=== PATIENT | female | born 1960 | race Caucasian/White ===

== ENCOUNTER → 2017-09-15 | Outpatient (CLI) | payer OTHER ==
[~2017-09-15] MED LIST: CPR500 PO; FSM70 PO
--- NOTE | 2017-09-18 07:58 | MAMMOGRAPHY REPORT ---
BILATERAL DIGITAL SCREENING MAMMOGRAM TOMOSYNTHESIS WITH CAD: 09/15/2017 CLINICAL HISTORY: Routine screening. Patient has no complaints. TECHNIQUE: Breast tomosynthesis in addition to standard 2D mammography was performed. Current study was also evaluated with a Computer Aided Detection (CAD) system. COMPARISON: Comparison is made to exams dated: 09/09/2016 mammogram, 09/04/2015 mammogram, 08/22/2014 mammogram, 08/16/2013 mammogram, 08/10/2012 mammogram, and 08/05/2011 mammogram - [facility]. BREAST COMPOSITION: The tissue of both breasts is extremely dense, which lowers the sensitivity of m ammography. FINDINGS: No suspicious masses, calcifications, or areas of architectural distortion are noted in ei ther breast. There has been no significant interval change compared to prior exams. IMPRESSION: ACR BI-RADS CATEGORY 1: NEGATIVE There is no mammographic evidence of malignancy. A 1 year screening mammogram is recommended. The pa tient will receive written notification of the results. Approximately 10% of breast cancers are not detected with mammography. A negative mammographic report should not delay biopsy if a clinically suggestive mass is present. Opal Coppola M.D. ah/:09/15/2017 16:35:41 Computer Operations Specialist: Marissa PAUL(Jose)(Gladys)(BD), [facility] letter sent: Normal 1/2 BI-RADS Code: ACR BI-RADS Category 1: Negative
== END | disposition home or self-care (01) ==
LOC: C.MAMM 13:15
PROVIDERS: ATTEND Family Medicine
DX: Z12.31 Encounter for screening mammogram for malignant neoplasm of breast (principal)

== ENCOUNTER 2024-11-13 15:43 | Inpatient (IN) ==
--- NOTE | 2024-11-13 15:48 | ED Triage Note ---
Date of Service November 13, 2024 Provider in Triage Author: Cinthya Forrester History of Present Illness This patient was briefly evaluated while in triage. An abbreviated physical exam was performed. This patient is a 64-year-old Female who presents to the ED for evaluation just seen at PCP for SOB and fever x 4-5 days oxygen levels were "low" and heart rate was "elevated" so was sent here for evaluation COVID test obtained, but unknown results Physical Exam GENERAL: NAD CARDIOVASCULAR: tachycardic in 120s RESPIRATORY: CTA ABDOMEN: BS x 4. Nontender to palpation. Initial orders for labs and / or imaging were placed and patient was placed in the waiting area until a bed is available. Please see further documentation for the full ED course.
[2024-11-13 16:09] LABS: Basophils # (auto) 0.06 K/uL (0.00-0.20); Basophils % (auto) 0.5 %; Eosinophils # (auto) 0.01 K/uL (0.00-0.50); Eosinophils % (auto) 0.1 %; Hematocrit (blood only) 41.1 % (37.0-47.0); Hemoglobin 13.7 g/dl (12.0-16.0); Immature Granulocytes # (auto) 0.06 K/uL (0.01-0.20); Immature Granulocytes % (auto) 0.5 %; Lymphocytes # (auto) 0.66 K/uL (1.20-3.40); Lymphocytes % (auto) 5.4 %; Mean Corpuscular Hemoglobin 29.8 pg (25.0-34.0); Mean Corpuscular Hgb Conc 33.3 g/dL (32.0-36.0); Mean Corpuscular Volume 89.5 fL (80.0-100.0); Mean Platelet Volume 10.2 fL (9.4-12.4); Monocytes # (auto) 0.97 K/uL (0.11-0.59); Neutrophils # (auto) 10.41 K/uL (1.40-6.50); Neutrophils % (auto) 85.5 %; Platelet Count 236 K/uL (130-400); RDW Coefficient of Variation 11.5 % (11.5-14.5); RDW Standard Deviation 37.4 fL (36.4-46.3); Red Blood Count 4.59 M/uL (4.20-5.40); White Blood Count 12.17 K/ul (4.8-10.8)
[2024-11-13 16:26] LABS: Albumin Level 4.4 gm/dl (3.4-5.0); BUN Creatinine Ratio 16.9 (10-20); Bilirubin,Total 0.6 mg/dl (0.2-1.0); Calcium 9.6 mg/dl (8.6-10.3); Globulin 4.5 gm/dl (2.5-4.0); Potassium 3.6 mmol/L (3.5-5.1); Total Protein 8.9 gm/dl (6.0-8.3)
[2024-11-13 16:33] LABS: Troponin I High Sensitivity 9.7 pg/ml (0-14)
[2024-11-13 16:43] LABS: D Dimer 1210 ug/L FEU (0-500)
[2024-11-13 16:51] LABS: Adenovirus PCR Not Detected (NotDetected); Bordetella parapertussis PCR Not Detected (NotDetected); Bordetella pertussis PCR Not Detected (NotDetected); Chlamydia pneumoniae PCR Not Detected (NotDetected); Coronavirus 229E PCR Not Detected (NotDetected); Coronavirus CoV-2 (COVID19)PCR Not Detected (NotDetected); Coronavirus HKU1 PCR Not Detected (NotDetected); Coronavirus NL63 PCR Not Detected (NotDetected); Coronavirus OC43PCR Not Detected (NotDetected); Human Metapneumovirus PCR Not Detected (NotDetected); Influenza A PCR Not Detected (NotDetected); Influenza B PCR Not Detected (NotDetected); Mycoplasma pneumoniae PCR Not Detected (NotDetected); Parainfluenza Virus 1 PCR Not Detected (NotDetected); Parainfluenza Virus 2 PCR Not Detected (NotDetected); Parainfluenza Virus 3 PCR Not Detected (NotDetected); Parainfluenza Virus 4 PCR Not Detected (NotDetected); Respiratory Syncytial VirusPCR Not Detected (NotDetected); Rhinovirus/Enterovirus PCR Not Detected (NotDetected)
[2024-11-13] MEDS: OPTIRAY 320 125ml IV ONE (16:58)
--- NOTE | 2024-11-13 17:15 | CT Scan Report ---
CT pulmonary angiogram with IV contrast History: Chest pain COMPARISON: 11/05/2023 TECHNIQUE: CT angiography of the chest was performed without IV contrast followed by IV contrast, including 3D post processing CTA image reconstruction. Dose reduction techniques were achieved by using automatic exposure control and/or adjustment of mA and/or kV according to patient size and/or use of iterative reconstruction technique. FINDINGS: Diagnostic quality: Adequate There is no evidence for pulmonary embolism. The heart is not enlarged. There is no pericardial effusion. Mildly prominent, likely reactive bilateral hilar lymph nodes. The central tracheobronchial tree is clear. Multifocal irregular nodular consolidative opacities are seen throughout the mid and lower lungs, as well as several scattered areas of tree-in-bud nodularity. There is no pleural effusion. Limited visualized upper abdomen. No destructive osseous changes are seen. IMPRESSION: No evidence for pulmonary embolism. Multifocal pneumonia. Electronically signed by Raul Adamson 11-13-2024 5:14 PM
--- NOTE | 2024-11-13 18:41 | XRay Report ---
Chest radiograph, one view History: Shortness of breath Comparison: Same-day CT Findings: Single AP view of the chest performed. Multifocal patchy opacities, most pronounced in the left lower lobe, and a few seen in the right mid lung in the periphery of the right lower lobe. No pneumothorax. The cardiomediastinal silhouette is within normal limits. Normal pulmonary vascularity. No evidence for lymphadenopathy. No visualized bony or soft tissue abnormality. Impression: Multifocal pneumonia Electronically signed by Raul Adamson 11-13-2024 6:41 PM
[2024-11-13 19:07] LABS: Appearance Urine Clear (Clear); Bacteria Urine Automated None Seen (None Seen); Bilirubin Urine Negative (Negative); Blood Urine Negative (Negative); Cast Urine Automated 0-2 /lpf (0-2); Color Urine Yellow; Epithelial Cell Urine Auto 0-2 /hpf (0-2); Glucose Urine UA Negative (Negative); Ketones Urine 4+ (Negative); Leukocyte Esterase Urine Negative (Negative); Nitrite Urine Negative (Negative); Protein Urine 2+ (Negative); Specific Gravity Urine > 1.045 (1.000-1.030); Urobilinogen Urine Negative (Negative); WBC Urine Automated 0-5 /hpf (0-5)
[2024-11-13] MEDS ORDERED: AZITHROMYCIN 500 MG VIAL IV STA (19:25)
[2024-11-13] MEDS: SODIUM CHLORIDE 0.9% 1,000 ML IV ONE (19:35)
[2024-11-13] MEDS: cefTRIAXone SODIUM 2,000 MG/50 ML BAG IV STA (19:35)
[2024-11-13] MEDS: DOXYCYCLINE HYCLATE 100 MG in DEXTROSE 5% MINI-B 100 ML IV STA (19:38)
[2024-11-13] MEDS: AZITHROMYCIN 500 MG in SODIUM CHLORIDE 0.9% 250 ML IV ONE (20:01)
--- NOTE | 2024-11-13 21:19 | Emergency Department Note ---
Impression & Plan Multifocal pneumonia, Shortness of breath, Tachycardia, Fever ED Provider Note NAME: KASEY BLEVINS AGE: 64 SEX: F : 1960 ARRIVES VIA: Walk-In INFORMANT: Patient, ED PROVIDER(S): René Hare MD CHIEF COMPLAINT: Fever, cough, weakness HPI: This is a 64-year-old male present for fever, cough and weakness. Patient notes that for the past 4 to 5 days she has felt increasingly weak and short of breath. She is had pneumonia multiple times over the past few years. She notes that she has tachycardia at her PCPs office and was sent here. She is intermittent hypoxic as well consistent with ambulation. She otherwise notes feeling like she has pneumonia currently. She has been coughing with pain in her chest with cough. Otherwise at rest she is asymptomatic. She is exceedingly weak and dehydrated After not eating and drinking ROS: See above HPI for pertinent positives & negatives. A total of 10 systems reviewed and were otherwise negative. PAST MEDICAL HISTORY: See Below PAST SURGICAL HISTORY: See Below FAMILY HISTORY: See Below SOCIAL HISTORY: See Below HOME MEDICATIONS: See Below ALLERGIES: See Below VITALS: See Below PHYSICAL EXAMINATION: General: resting comfortably in no acute distress Head: Normocephalic and atraumatic Eyes: Normal inspection, extraocular muscles intact Ear, nose, throat: Normal external exam, dry mucous membranes Neck: Normal range of motion Respiratory: Conversational dyspnea, rhonchi Cardiovascular: Tachycardic regular rate/rhythm, no murmur GI: soft, nontender, no guarding or rebound Extremities: nontender, moves all extremities Neuro: The patient awake and alert, appropriately conversive, no focal deficits, symmetric faces Skin: Warm, dry, and intact MEDICAL DECISION MAKING: This is a 64-year-old fampridine for cough, fever and weakness. Patient does not appear clinically septic but she does appear fairly ill. She is tachycardic into the 130s. She has dry mucous membranes will give 2 L resuscitation. Otherwise patient chest x-ray with multifocal pneumonia upon independent interpretation. She had a CT done at triage after positive D-dimer. This confirms multifocal pneumonia but no other process. -Otherwise blood work shows a leukocytosis of 12.17. Electrolytes generally stable, no signs of endorgan ischemia. Urinalysis reveals ketones consistent with dehydration. -Patient is currently having somewhat improved vital signs after fluids but still slightly tachycardic and having increased work of breathing -Will admit as patient does not appear clinically well and she has multifocal pneumonia. Will give ceftriaxone azithromycin -Patient admitted to hospital service Differential diagnosis: PE, pneumonia, ACS, sepsis Diagnostics interpreted by me: ECG: ECG independently interpreted by me with sinus tachycardia rate of 119, normal axis, normal UT, normal QRS, normal QTc, no ST segment elevations consistent with STEMI criteria Cardiac Monitoring: An order was placed for continuous cardiac monitoring. The monitor shows a rate of 112 with sinus rhythm. Past Med/Surg History Problem List (Updated 11/14/24 @ 09:28 by René Hare MD) Fever (Acute) Tachycardia (Acute) Shortness of breath (Acute) Multifocal pneumonia (Acute) Osteoporosis Social History Smoking Status: Never smoker Hx Alcohol Use: Yes Alcohol type: wine Hx Substance Use: No Preferred Language: Persian Special Events Coordinator Required: No Beliefs That Will Affect Care: None Current Living Situation: Alone Feels Safe at Home: Yes Assistive Devices: None Allergies Allergies Allergy/AdvReac Type Severity Reaction Status Date / Time No Known Allergies Allergy Verified 11/05/23 23:20 Home Meds Home Medications Medication Instructions Recorded Confirmed multivitamin 1 tab PO DAILY 11/13/24 11/13/24 Results & Data (ED) Vital Signs Vital Signs - 24 hr 11/13/24 15:44 11/13/24 18:39 11/13/24 18:39 Temperature 36.6 C Temperature Source Temporal Artery Scan Pulse Rate 127 H Pulse Rate [Apical] 126 H Respiratory Rate 19 32 H Respiratory Effort / Characteristics Non-Labored Spontaneous Respiratory Pattern Regular Blood Pressure 160/78 H Blood Pressure [Left Arm] 138/64 Blood Pressure Mean 105 Blood Pressure Mean [Left Arm] 88 Pulse Oximetry 94 94 96 Oxygen Delivery Method Room Air Room Air Room Air Sepsis Recent Fever Within 48 Hours No Sepsis New/Unexplained Change in Mental Status N/A Sepsis Action Taken by Nursing No Action Required 11/13/24 18:39 11/13/24 18:42 11/13/24 20:00 Temperature Temperature Source Pulse Rate 133 H Pulse Rate [Apical] 128 H Respiratory Rate 25 H Respiratory Effort / Characteristics Respiratory Pattern Blood Pressure Blood Pressure [Left Arm] 125/75 Blood Pressure Mean Blood Pressure Mean [Left Arm] 91 Pulse Oximetry 96 93 Oxygen Delivery Method Room Air Room Air Sepsis Recent Fever Within 48 Hours Sepsis New/Unexplained Change in Mental Status Sepsis Action Taken by Nursing Laboratory Data 11/14/24 06:12 11/14/24 06:12 Lab Results 11/13/24 11/13/24 11/13/24 Range/Units 15:52 15:54 18:41 WBC 12.17 H (4.8-10.8) K/ul RBC 4.59 (4.20-5.40) M/uL Hgb 13.7 (12.0-16.0) g/dl Hct 41.1 (37.0-47.0) % MCV 89.5 (80.0-100.0) fL MCH 29.8 (25.0-34.0) pg MCHC 33.3 (32.0-36.0) g/dL RDW Std Deviation 37.4 (36.4-46.3) fL RDW Coeff of Maxim 11.5 (11.5-14.5) % Plt Count 236 (130-400) K/uL MPV 10.2 (9.4-12.4) fL Immature Gran % (Auto) 0.5 % Neut % (Auto) 85.5 % Lymph % (Auto) 5.4 % [place] % (Auto) 8.0 % Eos % (Auto) 0.1 % Baso % (Auto) 0.5 % Neut # (Auto) 10.41 H (1.40-6.50) K/uL Lymph # (Auto) 0.66 L (1.20-3.40) K/uL [place] # (Auto) 0.97 H (0.11-0.59) K/uL Eos # (Auto) 0.01 (0.00-0.50) K/uL Baso # (Auto) 0.06 (0.00-0.20) K/uL Immature Gran # (Auto) 0.06 (0.01-0.20) K/uL D-Dimer 1210 H* (0-500) ug/L FEU Sodium 134 L (136-145) mmol/L Potassium 3.6 (3.5-5.1) mmol/L Chloride 96 L (98-107) mmol/L Carbon Dioxide 27 (21-32) mmol/L Anion Gap 11 (3-11) BUN 10 (6-23) mg/dl Creatinine 0.59 L (0.6-1.2) mg/dl Est Cr Clr Drug Dosing 76.0 ml/min eGFR 99.33 BUN/Creatinine Ratio 16.9 (10-20) Glucose 120 H (70-99(Fasting)) mg/dl Calcium 9.6 (8.6-10.3) mg/dl Total Bilirubin 0.6 (0.2-1.0) mg/dl AST 23 (13-39) U/L ALT 23 (7-52) U/L Alkaline Phosphatase 113 H (34-104) U/L Troponin I High Sens 9.7 (0-14) pg/ml Total Protein 8.9 H (6.0-8.3) gm/dl Albumin 4.4 (3.4-5.0) gm/dl Globulin 4.5 H (2.5-4.0) gm/dl Albumin/Globulin Ratio 1.0 (0.9-2) Urine Color Yellow Urine Appearance Clear (Clear) Urine pH 6.0 (4.5-7.5) Ur Specific [place] > 1.045 H (1.000-1.030) Urine Protein 2+ H (Negative) Urine Glucose (UA) Negative (Negative) Urine Ketones 4+ H (Negative) Urine Blood Negative (Negative) Urine Nitrite Negative (Negative) Urine Bilirubin Negative (Negative) Urine Urobilinogen Negative (Negative) Ur Leukocyte Esterase Negative (Negative) Urine WBC (Auto) 0-5 (0-5) /hpf Urine RBC (Auto) 3-5 H (0-2) /hpf U Hyaline Cast (Auto) 0-2 (0-2) /lpf U Epithel Cells (Auto) 0-2 (0-2) /hpf Urine Bacteria (Auto) None Seen (None Seen) Adenovirus (PCR) Not Detected (NotDetected) B. pertussis DNA (PCR) Not Detected (NotDetected) B.parapertussis DNA PCR Not Detected (NotDetected) C. pneumoniae DNA (PCR) Not Detected (NotDetected) Coronavirus OC43 (PCR) Not Detected (NotDetected) Coronavirus HKU1 (PCR) Not Detected (NotDetected) Coronavirus 229E (PCR) Not Detected (NotDetected) SARS-CoV-2 (PCR) Not Detected (NotDetected) Coronavirus NL63 (PCR) Not Detected (NotDetected) Human Metapneumovir PCR Not Detected (NotDetected) Influenza Type A (PCR) Not Detected (NotDetected) Influenza Type B (PCR) Not Detected (NotDetected) M. pneumoniae (PCR) Not Detected (NotDetected) Parainfluenza 1 (PCR) Not Detected (NotDetected) Parainfluenza 2 (PCR) Not Detected (NotDetected) Parainfluenza 3 (PCR) Not Detected (NotDetected) Parainfluenza 4 (PCR) Not Detected (NotDetected) RSV (PCR) Not Detected (NotDetected) Entero/Rhino (PCR) Not Detected (NotDetected) Administered Medications Enoxaparin Sodium (Enoxaparin Inj 40 Mg/0.4 Ml Syr) 40 mg SQ Q24H NICOLE Stop: 12/13/24 21:46 Last Admin: 11/13/24 22:20 Dose: 40 mg Documented By: MENA Guaifenesin/Dextromethorphan (Guaifenesin/Dextrom Syrup 100mg/10mg 5ml Udc) 5 ml PO Q6H PRN PRN Reason: Cough Stop: 12/13/24 21:46 Last Admin: 11/13/24 22:34 Dose: 5 ml Documented By: MENA Sodium Chloride (Nss) 1,000 mls @ 125 mls/hr IV .Q8H NICOLE Stop: 11/14/24 21:46 Last Admin: 11/14/24 06:17 Dose: 125 mls/hr Documented By: Infusion: 11/14/24 06:17 Dose: Infused Documented By: Admin: 11/13/24 22:20 Dose: 125 mls/hr Documented By: MENA Piperacillin Sod/Tazobactam Sod (Zosyn) 4.5 gm in 100 mls @ 25 mls/hr IV Q8H NICOLE; Protocol Stop: 11/18/24 22:59 Last Admin: 11/14/24 06:17 Dose: 25 mls/hr Documented By: Infusion: 11/14/24 02:54 Dose: Infused Documented By: Admin: 11/13/24 22:19 Dose: 25 mls/hr Documented By: MENA Discontinued Medications Sodium Chloride (Nss) 1,000 mls @ 999 mls/hr IV .Q1H1M ONE Stop: 11/13/24 20:21 Last Infusion: 11/13/24 20:38 Dose: Infused Documented By: Admin: 11/13/24 19:35 Dose: 999 mls/hr Documented By: JAY Ceftriaxone Sodium (Rocephin) 2,000 mg in 50 mls @ 100 mls/hr IV NOW STA Stop: 11/13/24 19:51 Last Infusion: 11/13/24 20:07 Dose: Infused Documented By: Admin: 11/13/24 19:35 Dose: 100 mls/hr Documented By: JAY Doxycycline Hyclate 100 mg/ (Dextrose) 100 mls @ 50 mls/hr IV NOW STA Stop: 11/13/24 21:21 Last Admin: 11/13/24 19:38 Dose: Not Given Documented By: JAY Azithromycin 500 mg/ Sodium (Chloride) 255 mls @ 127.5 mls/hr IV NOW ONE Stop: 11/13/24 21:29 Last Infusion: 11/13/24 22:09 Dose: Infused Documented By: Admin: 11/13/24 20:01 Dose: 127.5 mls/hr Documented By: JAY Promethazine HCl (Phenergan) 12.5 mg in 50.5 mls @ 202 mls/hr IV NOW STA Stop: 11/13/24 21:01 Last Infusion: 11/13/24 22:51 Dose: Infused Documented By: Admin: 11/13/24 22:34 Dose: 202 mls/hr Documented By: MENA Ioversol (Optiray 320 125ml) 119 ml IV ONCE ONE Stop: 11/13/24 16:59 Last Admin: 11/13/24 16:58 Dose: 119 ml Documented By: VINCE Imaging Data Radiologist's Impression: Chest X-Ray 11/13/24 15:48 Chest radiograph, one view History: Shortness of breath Comparison: Same-day CT Findings: Single AP view of the chest performed. Multifocal patchy opacities, most pronounced in the left lower lobe, and a few seen in the right mid lung in the periphery of the right lower lobe. No pneumothorax. The cardiomediastinal silhouette is within normal limits. Normal pulmonary vascularity. No evidence for lymphadenopathy. No visualized bony or soft tissue abnormality. Impression: Multifocal pneumonia Electronically signed by Raul Adamson 11-13-2024 6:41 PM Chest CTA 11/13/24 16:43 CT pulmonary angiogram with IV contrast History: Chest pain COMPARISON: 11/05/2023 TECHNIQUE: CT angiography of the chest was performed without IV contrast followed by IV contrast, including 3D post processing CTA image reconstruction. Dose reduction techniques were achieved by using automatic exposure control and/or adjustment of mA and/or kV according to patient size and/or use of iterative reconstruction technique. FINDINGS: Diagnostic quality: Adequate There is no evidence for pulmonary embolism. The heart is not enlarged. There is no pericardial effusion. Mildly prominent, likely reactive bilateral hilar lymph nodes. The central tracheobronchial tree is clear. Multifocal irregular nodular consolidative opacities are seen throughout the mid and lower lungs, as well as several scattered areas of tree-in-bud nodularity. There is no pleural effusion. Limited visualized upper abdomen. No destructive osseous changes are seen. IMPRESSION: No evidence for pulmonary embolism. Multifocal pneumonia. Electronically signed by Raul Adamson 11-13-2024 5:14 PM Discharge Plan Visit Data Chief Complaint: Chest Pain Stated Complaint: CHEST PAIN, SOB ED Provider: René Hare Discharge Problem: Multifocal pneumonia, Shortness of breath, Tachycardia, Fever Patient Disposition: Admitted As Inpatient
[2024-11-13] MEDS ORDERED: ACETAMINOPHEN 325 MG TAB PO PRN (21:47)
[2024-11-13] MEDS ORDERED: NITROGLYCERIN SL 0.4 MG/TAB TAB SL PRN (21:47)
[2024-11-13] MEDS: PIPERACILLIN/TAZOBACTAM 4.5 GM/100 ML BAG IV SCH (22:19)
[2024-11-13] MEDS: SODIUM CHLORIDE 0.9% 1,000 ML IV SCH (22:20)
[2024-11-13] MEDS: ENOXAPARIN INJ 40 MG/0.4 ML SYR SQ SCH (22:20)
[2024-11-13] MEDS: PROMETHAZINE 12.5 MG/50.5 ML BAG IV STA (22:34)
[2024-11-13] MEDS: guaiFENesin/DEXTROM SYRUP 100MG/10MG 5ML UDC PO PRN (22:34)
--- OUTSIDE RECORDS SUMMARY | 2024-11-14 01:43 | External Medical Summary | Summary of Care ---
Author Name Unknown Organization [facility] Address [address] [facility] [place] [place] [address] Phone [phone] Care Team Providers Care Dinkey Operator Slag Name Role Phone Karina Watson DO Primary Care Provider [phone] Reason for Visit * Reason Comments Infusion Reclast * Episode Based Medications (Routine) - Authorized Specialty Diagnoses / Procedures Referred By Contyusuf t Referred To Contact Diagnoses Senile osteoporosis Procedures NC ZOLEDRONIC ACID 1MG Zac Gonzalez CRNP [address], [place] [address] Phone: tel: fax: Hematology/Oncology Treatment, [address] [place] [address] Phone: tel: fax: Referral ID Status Reason Start Date Expiration Date V isits Requested Visits Authorized [id number] Authorized 10/21/2024 10/21/2025 99 99 Encounter Details Date Type Department Care Team (Latest Contact Info) Description 10/29/2024 1:30 PM EST Hem/Onc Treatment Hematology/Oncology Treatment, [address] [place] [address] Anastasiya Chair 8 Hem Onc [address] [address] Senile osteoporosis* Allergies No known active allergiesdocumented as of this encounter (statuses as of 11/09/2024) Medications Multiple Vitamins-Mineral s (MULTIVITAL) chewable tablet Take 1 Tablet by mouth in the morning. Active documented as of this encounter (statuses as of 11/09/2024) Active Problems Problem Noted Date Diagnosed Date Senile osteoporosis 10/21/2024 History of recurrent pneumonia 02/02/2024 Hepatic lesion 02/02/2024 Degenerative arthritis of spine 02/02/2024 Diverticulosis of sigmoid colon 02/02/2024 Seborrheic keratosis 09/10/2015 Osteoporosis 09/17/2013 Overview (12/06/2019): On fosamax [id number], Repeat dexa spring 2021 documented as of this encounter (statuses as of 11/09/2024) Immunizations Name Administration Dates Next Due COVID-19 mRNA, LNP-s, No Pre serve, 2-Dose Series (Moderna) 10/28/2020,09/30/2020 Pneumococcal Conjugate Vacci ne, 20-valent ([id number]) 05/01/2024 Seasonal Influenza Vac., MDV , IM, 0.5 mL (Fluzone) 08/08/2014,07/16/2013,07/07/2011 Seasonal Influenza, PF, 6 M & above, IM , (FluLaval or Fluzone) 07/09/2022,08/13/2021,07/26/2019,2017,08/18/2017 Seasonal Influenza, Quadriva lent, No Preserve, IM 08/05/2016,09/10/2015 TDAP (age 10 and older)(Boostrix) 11/18/2016,03/2007 Zoster Vaccine Recombinant (Shingrix) 03/13/2020 ,12/06/2019 documented as of this encounter Social History Tobacco Use Types Packs/Day Years Used Date Smoking Tobacco: Former Cigarettes 0.5 3 0 10/02/1975 - 10/02/1978 Smokeless Tobacco: Never Alcohol Use Standard Drinks/Week Comments Yes 0 (1 standard drink = 0.6 oz pure alcohol) 1/day, sometimes more on weekend Humiliation, Afraid, Rape, and Kick questionnair e Answer Date Recorded Within the last year, have y ou been afraid of your partner or ex-partner? No 02/02/2024 Within the last year, have y ou been humiliated or emotionally abused in other ways by your partner or ex-partner? No Within the last year, have y ou been kicked, hit, slapped, or otherwise physically hurt by your partner or ex-partner? No 02/02/2024 Within the last year, have y ou been raped or forced to have any kind of sexual activity by your partner or ex-partner? No 02/02/2024 Social Connection and Isolat ion Panel [NHANES] Answer Date Recorded In a typical week, how many times do you talk on the phone with family, friends, or neighbors? More than three times a week 02/02/2024 How often do you get togethe r with friends or relatives? More than three times a week 02/02/2024 How often do you attend [facility] or anabaptism services? More than 4 times per year 02/02/2024 Do you belong to any clubs o r organizations such as faith groups, unions, fraternal or athletic groups, or school groups? Yes 02/02/2024 How often do you attend meet ings of the clubs or organizations you belong to? More than 4 times per year 02/02/2024 Are you , , di vorced, , never , or living with a partner? 02/02/2024 AUDIT-C Answer Date Recorded Q1: How often do you have a drink containing alc ohol? Monthly or less 02/02/2024 Q2: How many drinks containi ng alcohol do you have on a typical day when you are drinking? 1 or 2 02/02/2024 Q3: How often do you have si x or more drinks on one occasion? Never 02/02/2024 Overall Financial Resource Strain (CARDIA) Answe r Date Recorded How hard is it for you to pa y for the very basics like food, housing, medical care, and heating? Not hard at all 02/02/2024 PHQ-2 Answer Date Recorded PHQ Adult Total Score 0 02/02/2024 [facility] Occupat ional [facility] - Occupational Stress Questionnaire Answer Date Recorded Do you feel stress - tense, restless, nervous, or anxious, or unable to sleep at night because your mind is troubled all the time - these days? Only a little 02/02/2024 Exercise Vital Sign Answer Date Recorde d On average, how many days pe r week do you engage in moderate to strenuous exercise (like a brisk walk)? 0 days 02/02/2024 On average, how many minutes do you engage in exercise at this level? 0 min 02/02/2024 Hunger Vital Sign Answer Date Recorded Within the past 12 months, y ou worried that your food would run out before you got the money to buy more. Never true 02/02/20 24 Within the past 12 months, t he food you bought just didn't last and you didn't have money to get more. Never true 02/02/2024 PRAPARE - Transportation Answer Date Re corded In the past 12 months, has l ack of transportation kept you from medical appointments or from getting medications? No 12/2023 In the past 12 months, has l ack of transportation kept you from meetings, work, or from getting things needed for daily living? No 02/02/2024 Housing Stability Vital Sign Answer Chong e Recorded In the last 12 months, was t here a time when you were not able to pay the mortgage or rent on time? No 02/02/2024 In the last 12 months, how many places have you lived? 1 02/02/2024 In the last 12 months, was t here a time when you did not have a steady place to sleep or slept in a fdc (including now)? No 02/02/2024 Childcare Answer Date Recorded Do you feel overwhelmed with taking care of a child, family member or friend? No 02/02/2024 Does your family need help f inding childcare? (Household - for ages 0-17 years) Not on file 02/02/2024 Clothing Answer Date Recorded Have you been unable to get clothing when it was really needed? No 02/02/2024 Is your family able to get c lothes or diapers when needed? (Household - for ages 0-17 years) Not on file 02/02/2024 Personal Safety Answer Date Recorded Do you feel unsafe or have concerns for your saf ety? No 02/02/2024 Do you have concerns for you r family's safety? (Household - for ages 0-17 years) Not on file 02/02/2024 Utilities Answer Date Recorded Do you have trouble paying y our heating, water, or electric bill? No 02/02/2024 Is your family able to pay t he heat, water, or electric bill? (Household - for ages 0-17 years) Not on file 02/02/2024 Does your family have access to good internet? (Household - for ages 0-17 years) Not on file 02/02/2024 Employment Status Answer Date Recorded Are you unemployed or without regular income? No 02/02/2024 Does the household have a re gular source of income? (Household - for ages 0-17 years) Not on file 02/02/2024 Social Connections Answer Date Recorded How often do you feel lonely or isolated from th ose around you? Never 02/02/2024 Financial Resource Strain Answer Date R ecorded Do you have any trouble payi ng for your medications, or do you think you might in the future? No 02/02/2024 Does your family have troubl e paying for medicine? (Household - for ages 0-17 years) Not on file 02/02/2024 Transportation Needs Answer Date Record ed READ ONLY Do you have troubl e getting a ride to medical visits or work? Never True 02/02/2024 Does your family have a hard time getting a ride to doctors visits? (Household - for ages 0-17 years) Not on file 02/02/2024 Has lack of transportation k ept you from medical appointments, meetings, work, or from getting things needed for daily living? Check all that apply. (Adult - for ages 18 years and over) Not on file 02/02/2024 Do you (or your family) have trouble finding or paying for a ride (transportation)? (Household - for ages 0-17 years) Not on file 02/02/2024 Housing Stability Answer Date Recorded Do you currently live in a s helter or have no steady place to sleep at night? No 02/02/2024 READ ONLY Do you think you a re at risk of becoming homeless? No 02/02/2024 Does your family worry about paying for your home or becoming homeless? (Household - for ages 0-17 years) Not on file 0 02/02/2024 Are you homeless or worried that you might be in the future? (Adult - for ages 18 years and over) Not on file Are you (or your family) estuardo eless or worried that you might be in the future? (Household - for ages 0-17 years) Not on file Food Insecurity Answer Date Recorded Do you need food for this week? No 02/02/2024 Are you able to get enough f ood for your family? (Household - for ages 0-17 years) Not on file 02/02/2024 Does your family need food t his week? (Household - for ages 0-17 years) Not on file 02/02/2024 Do you always have enough fo od for your family? (Household - for ages 0-17 years) Not on file 02/02/2024 Food Insecurity Answer Date Recorded Within the past 12 months, y ou worried that your food would run out before you got the money to buy more. Never true 02/02/20 24 Within the past 12 months, t he food you bought just didn't last and you didn't have money to get more. Never true 02/02/2024 Do you need food for this week? No 02/02/2024 Comments No Sex and Gender Information Value Date Recorded Sex Assigned at Female 01/16/2019 10:12 AM EDT Legal Sex Female 5:57 AM EST Gender Identity Female 01/16/2019 10:12 AM EDT Sexual Orientation Straight 04/17/2022 2: 51 PM EDT documented as of this encounter Last Filed Vital Signs Vital Sign Reading Time Taken Comments Blood Pressure 119/65 10/29/2024 1:37 PM EST Pulse 82 10/29/2024 1:37 PM EST Temperature 36.6 C (97.9 F) 10/29/2024 1:37 PM ES T Respiratory Rate 16 10/29/2024 1:37 PM EST Oxygen Saturation 97% 10/29/2024 1:37 PM EST Inhaled Oxygen Concentration - - Weight - - Height - - Body Mass Index - - documented in this encounter Functional Status * Does this person have serious difficulty walking or climbing stairs? Answer Date of Assessment Author Yes 02/02/2024 8:38 AM EDT documented as of this encounter Nursing Notes * Dominique Glass LPN - 10/29/2024 2:21 PM EST 1340: Pt arrived for Reclast infusion. PIV in RFA. Pt tolerated well. VSS. APAP held due to patienttaking prior to appt. Pt has no complaints at this time. Patient instructed on use of heat and massage functions where applicable. Patient shown how to operate the heat function of the chair and to alert nursing staff if the chair feels too warm. Patient instructed on the risk of potential campbell while using the heat function. 1440: Pt tolerated Reclast infusion well. PIV removed intact. Pt to follow up with MD. Discharged in stable condition. documented in this encounter Plan of Treatment Upcoming Encounters Date Type Department Care Team (Late st Contact Info) Description 02/04/2025 10:00 AM EDT Telemedicine Care at Home [address] [place] [address] Francisco Cervantes CRNP [address] [place] [address] 10/21/2025 2:30 PM EST Office Visit Rheumatology [facility] [address] [place] [address] Zac Gonzalez CRNP [address] [place] [id number] Scheduled Procedures Name Priority Associated Diagnoses Date/Ti me COLONOSCOPY FLEXIBLE PROXIMA L DIAGNOSTIC Recall History of colonic polyps Health Maintenance Due Date Last Done Comments Cologuard 2003 Sigmoidoscopy 2003 Fecal Occult Blood Test 09/22/2012 09/22/2011 COVID-19 Vaccine ( season) 2024 10/28/2020, 09/30/2020 Influenza Vaccine (FLU shot) (#1) 2024 07/09/2022, 08/13/2021, 07/26/2019, Additional history exists Lipid Panel 12/13/2024 12/14/2019, 11/02, 09/20/2013 Adult Wellness Visit 02/01/2025 02/02/2024 Depression Screening 02/01/2025 02/02/2024 Mammogram 10/28/2025 10/28/2024, 10/03, 10/27/2023, Additional history exists DXA Scan 05/24/2026 05/24/2024, 05/03, 02/02/2022, Additional history exists DTap/Tdap Vaccines (3 - Td or Tdap) 11/18/2026 11/18/2016, 10/07/2006 Colonoscopy 10/23/2029 10/23/2024, 10/03, 10/05/2018, Additional history exists Colorectal Cancer Screening 10/23/2029 Zoster Vaccines Completed 03/13/2020, 12/06/2019 Cervical Cancer Screening Discontinued Pap Smear Discontinued 12/16/2020, 08/02, 08/08/2014, Additional history exists Pneumococcal Vaccine: 50+ Years Completed 05/01/2024 VITAMIN D LEVEL ONCE IN A LIFETIME-USE SMARTSET# [id number] Completed 10/18/2024, 04/15/2023, 08/31/2018, Additional history exists RETIRED - COLONOSCOPY-EVERY 5 YRS AGES 18-100 Discontinued 10/23/2024, 10/23/2024, 10/05/2018, Additional history exists HPV (Gardasil) Vaccine Aged Out No lo nger eligible based on patient's age to complete this topic HPV/Co-Test Discontinued Hepatitis B Vaccine Aged Out No longe r eligible based on patient's age to complete this topic MENINGOCOCCAL (MENACTRA/MENVEO) Aged Out No longer eligible based on patient's age to complete this topic documented as of this encounter Medical Devices Not on filedocumented as of this encounter Visit Diagnoses Diagnosis Senile osteoporosis- Primary documented in this encounter Administered Medications Inactive Administered Medications - up to 3 most recent administrations Medication Order MAR Action Action Date Dose Rate Site NSS infusion Intravenous, at 50 mL/hr, PRN, Starting on Mon10/29/24 at 1445, Until Mon10/29/24 at 1843, Maintenance lineIndications:Senile osteoporosis Start Infusion 10/29/2024 1:42 PM EST 50 mL/hr Zoledronic Acid (Reclast) 5 mg in 100 mL PREMIX ivpb 5 mg, IV Piggyback, ONCE, 1 dose, On Mon10/29/24 at 1445, Administer over 45 minutes for 1st infusion and 30 minutes for subsequent.Indications:Shelia le osteoporosis Start Infusion 10/29/2024 1:42 PM EST 5 mg 133.33 mL/hr documented in this encounter Advance Directives Documents on File Type Date Recorded Patient Outside Contractor Sales Expl anation Advance Directives and Living Will 10/07/2016 LIVING WILL Care Teams Dinkey Operator Slag Relationship Specialty Start Date End Date Karina Watson DO [address] [place] [address] PCP - General Family Medicine 08/09/14 documented as of this encounter
--- OUTSIDE RECORDS SUMMARY | 2024-11-14 01:43 | External Medical Summary | Summary of Care ---
Author Name Unknown Organization [facility] Address [address] [place] [address] Phone [phone] Care Team Providers Care Risk And Compliance Analytics Director Name Role Phone Karina Watson DO Primary Care Provider [phone] Reason for Visit * Auth/Cert Specialty Diagnoses / Procedures Referred By Mireya t Referred To Contact Diagnoses History of colon polyps Family history of colonic polyps Special screening for malignant neoplasms, colon History of colon polyps [Z86.0100] Family history of colonic polyps [Z83.719] Special screening for malignant neoplasms, colon [Z12.11] Procedures COLONOSCOPY, DIAGNOSTIC (RECTUM) COLONOSCOPY FLEXIBLE PROXIMAL DIAGNOSTIC Enrike Rajput MD [address] [place] [address] Phone: tel: fax: ENDO [facility], Endoscopy Room [facility] [address] [place] [phone] Phone: tel: Referral ID Status Reason Start Date Expiration Date Visits Re quested Visits Authorized [id number] Encounter Details Date Type Department Care Team (Latest Contact Info) Description 10/23/2024 10:44 AM EST - 10/23/2024 12:24 PM EST Hospital Encounter ENDO [facility], Endoscopy Room [facility] [address] [place] [phone] Enrike Rajput MD [address] [place] [address] Colonoscopy Discharge Disposition: Home - Self Care Allergies No known active allergiesdocumented as of this encounter (statuses as of 10/24/2024) Medications Multiple Vitamins-Mineral s (MULTIVITAL) chewable tablet Take 1 Tablet by mouth in the morning. Active documented as of this encounter (statuses as of 10/24/2024) Active Problems Problem Noted Date Diagnosed Date Senile osteoporosis 10/21/2024 History of recurrent pneumonia 02/02/2024 Hepatic lesion 02/02/2024 Degenerative arthritis of spine 02/02/2024 Diverticulosis of sigmoid colon 02/02/2024 Seborrheic keratosis 09/10/2015 Osteoporosis 09/17/2013 Overview (12/06/2019): On fosamax [id number], Repeat dexa spring 2021 documented as of this encounter (statuses as of 10/24/2024) Immunizations Name Administration Dates Next Due COVID-19 mRNA, LNP-s, No Pre serve, 2-Dose Series (Moderna) 10/28/2020,09/30/2020 Pneumococcal Conjugate Vacci ne, 20-valent ([id number]) 05/01/2024 Seasonal Influenza Vac., MDV , IM, [...] week 02/02/2024 How often do you attend chur or sikhism services? More than 4 times per year 02/02/2024 Do you belong to any clubs o r organizations such as gnosticism groups, unions, fraternal or athletic groups, or [...] Recorded PHQ Adult Total Score 0 02/02/2024 [facility] - Occupational Stress Questionnaire Answer Date Recorded [...] place to sleep or slept in a senior living (including now)? No 02/02/2024 Childcare Answer Date [...] ages 0-17 years) Not on file 02/02/2024 Comments No Sex and Gender Information Value Date Recorded Sex Assigned at Female 01/16/2019 10:12 AM EDT Legal Sex Female 5:57 AM EST Gender Identity Female 01/16/2019 10:12 AM EDT Sexual Orientation Straight 04/17/2022 2: 51 PM EDT documented as of this encounter Last Filed Vital Signs Vital Sign Reading Time Taken Comments Blood Pressure 115/89 10/23/2024 12:11 PM EST Pulse 74 10/23/2024 12:11 PM EST Temperature 36.1 C (97 F) 10/23/2024 12:11 PM EST Respiratory Rate 16 10/23/2024 12:11 PM EST Oxygen Saturation 100% 10/23/2024 12:11 PM EST Inhaled Oxygen Concentration - - Weight 52.6 kg (116 lb) 10/23/2024 10:54 AM EST Height 164.5 cm (5' 4.76") 10/23/2024 10:[address] Body Mass Index 19.44 10/23/2024 10:54 AM EST documented in this encounter Functional Status * Does this person have serious difficulty walking or climbing stairs? Answer Date of Assessment Author Yes 02/02/2024 8:38 AM EDT documented as of this encounter H&P Notes * Enrike Rajput MD - 10/23/2024 11:16 AM EST Endoscopy Pre-Procedure Assessment Name: Sarah Altman Date: 10/23/2024 Time: 11:16 AM Procedure: Colonoscopy; with Indication(s) of colon polyp surveillance Endoscopy Pre-Procedure Assessment: Prior to the procedure, the patient was identified. The patient's history, medications and allergies were reviewed as per the Anesthesia Assessment. The patient is competent. The risks and benefits of the proposed procedure and the planned sedation were discussed with the patient. All questions were answered and informed consent for the procedure was obtained. This patient has undergone a preprocedural evaluation. A determination has been made to proceed with the planned procedure under [facility] procedural guidelines and the [facility] Non-Emergent, Elective Medical Services and Treatment Recommendations (published on 01-07-20). The community and hospital prevalence of COVID-19 has been discussed as well as this patient's specific risks associated with SARS-CoV-19 infection. Based upon the clinical acuity and patient-specific care considerations, this procedure is deemed a Tier II - Intermediate acuity treatment or service with either progression or the threat of progressive disease related to the delay in treatment. Not providing the service has the potential for increasing morbidity or mortality. Temp 36.6 C (97.8 F) (Tympanic) | Ht 1.645 m (5' 4.76") | Wt 52.6 kg (116 lb) | BMI 19.44 kg/m | BSA 1.55 m Prior to Admission medications Medication Sig Last Dose Discont. Multiple Vitamins-Minerals (MULTIVITAL) chewable tablet Take 1 Tablet by mouth in the morning. PastWeek valACYclovir HCl 500 MG Oral Tablet (Valtrex) Take 2 Tablets by mouth in the morning for 5 days. Review of patient's allergies indicates: No Known Allergies Physical Exam: Mental Status Examination: alert and oriented. General: nad, calm Airway Examination: normal oropharyngeal airway and neck mobility. CV: no JVD Respiratory Examination: symmetrical excursion Abd:soft/ntd ASA Grade: II - A patient with mild systemic disease. After reviewing the risks and benefits, the patient was deemed in satisfactory condition to undergothe procedure. The anesthesia plan was to use general anesthesia. Enrike Rajput MD 10/23/2024 documented in this encounter Procedure Notes * Karina Watson DO - 10/23/2024 11:17 AM ESTAssociated Order(s): COLONOSCOPY [facility] Patient Name: Sarah Altman Procedure Date: 10/23/2024 11:17 AM Date of : 1960 Admit Type: Outpatient Note Status: Finalized Date of : 1960 Admit Type: Outpatient Age: 64 Room: Endo 3 Gender: Female Note Status: Finalized Procedure: Colonoscopy Indications: High risk colon cancer surveillance: Personal history of non- advanced adenoma Providers: Enrike Rajput MD (Doctor) Referring MD: Karina Watson DO (Referring MD) Medicines: Propofol per Anesthesia Complications: No immediate complications. Estimated blood loss: None. Procedure: Pre-Anesthesia Assessment: - - Prior to the procedure, a History and Physical was performed, patient medications, allergies and sensitivities were reviewed. The patient's tolerance of previous anesthesia was reviewed. See [facility] for further details. - The risks, benefits, and alternatives of the procedure including the sedation options and risks were discussed with the patient. All questions were answered and informed consent was obtained. - Patient identification and proposed procedure were verified prior to the procedure by the physician and the nurse. The procedure was verified in the procedure room. - See [facility] for documentation of the pre-procedure assessment including ASA status. - After I obtained informed consent, the scope was carefully and meticulously passed under direct vision only when the lumen was definitively identified. CO2 insufflation was utilized throughout the entire procedure exclusively. After I obtained informed consent, the scope was passed under direct vision. All instruments were visually inspected immediately before and after removal from the patient to ensure they are fully intact. Throughout the procedure, the patient's blood pressure, pulse, and oxygen saturations were monitored continuously. The colonoscopy was performed without difficulty. The patient tolerated the procedure well. The quality of the bowel preparation was good. The Colonoscope was introduced through the anus and advanced to the cecum, identified by appendiceal orifice and ileocecal valve. Findings & Specimens: The terminal ileum appeared normal. Multiple small-mouthed diverticula were found in the sigmoid colon. Internal hemorrhoids were found during retroflexion. A 4 mm polyp was found in the ascending colon. The polyp was sessile. The polyp was removed with a cold snare. Resection and retrieval were complete. The pathology specimen was placed into Bottle Number 1. The exam was otherwise without abnormality on direct and retroflexion views. Impression: - The examined portion of the ileum was normal. - Diverticulosis in the sigmoid colon. - Internal hemorrhoids. - One 4 mm polyp in the ascending colon, removed with a cold snare. Resected and retrieved. - The examination was otherwise normal on direct and retroflexion views. Recommendation: - Discharge patient to home (with escort). - Repeat colonoscopy in 5 years for surveillance based on pathology results. - Return to referring physician as previously scheduled. - Patient has a contact number available for emergencies. The signs and symptoms of potential delayed complications were discussed with the patient. Return to normal activities tomorrow. Written discharge instructions were provided to the patient. Enrike Rajput MD 10/23/2024 11:55:45 AM This report has been signed electronically. documented in this encounter Nursing Notes * Georgie Joyner RN - 10/23/2024 12:23 PM EST Patient is alert, pain free, passing flatus and tolerating po fluids prior to discharge. Patient has been visited by Dr. Rajput. Patient has received and demonstrates understanding of discharge instructions. Patient ambulated to private auto accompanied by endo staff. * Georgie Joyner RN - 10/23/2024 12:05 PM EST Patient transferred to post endo s/p colonoscopy. Patient awake/drowsy Respirations are even and unlabored on room air. NSR in the 80s on the monitor. Abdomen soft and non distended. Vital signs stable. * John Blanco RN - 10/23/2024 11:55 AM EST See anesthesia record for medication administered during procedure. John Blanco RN Specimen(s) and location(s) verified with physician post procedure 11:55 AM John Blanco RN Pre cleaning of scope at the bedside started by phlebotomy technologist. Mid abdominal pressure given per Dr. Rajput to assist with scope advancement. Pt tolerated well * Karolina Crowley RN - 10/23/2024 11:11 AM EST The following pt discharge instructions reviewed with pt prior to prodedure: No driving today. No alcohol today. No signing of legal documents. Rest as much as possible today and can return to normal activities tomorrow. No operating any heavy equipment today. Diet as tolerated. Pt verbalized understanding. documented in this encounter Plan of Treatment Upcoming Encounters Date Type Department Care Team (Late st Contact Info) Description 10/29/2024 1:30 PM EST Hem/Onc Treatment Hematology/Oncology Treatment, [place] [address] [place] [address] Anastasiya, Chair [address] Hem Onc Scenery [address] [place] [address] 02/04/2025 10:00 AM EDT Telemedicine Care at Home [address] [place] [address] Francisco Cervantes CRNP [address] [place] [address] 10/21/2025 2:30 PM EST Office Visit Rheumatology [facility] [address] [place] [phone] Zac Gonzalez CRNP [address] [place] [address] Pending Results Name Type Priority Associated Diagnoses Date /Time SURGICAL PATHOLOGY Pathology Routine History of colon polyps Family history of colonic polyps Special screening for malignant neoplasms, colon 10/23/2024 11:56 AM EST Scheduled Orders Name Type Priority Associated Diagnoses Orde r Schedule SURGICAL PATHOLOGY Pathology Routine History of colon polyps Family history of colonic polyps Special screening for malignant neoplasms, colon Release Upon Ordering for 1 Occurrences starting 10/23/2024, 1 completed Health Maintenance Due Date Last Done Comments Cologuard 2003 Sigmoidoscopy 2003 Fecal Occult Blood Test 09/22/2012 09/22/2011 *BISPHONATE OR OTHER ACCEPTABLE MEDICATION NEEDED FOR OSTEOPOROSIS (REFER TO SMARTSET #1146) 12/09/2019 COVID-19 Vaccine ( season) 2024 10/28/2020, 09/30/2020 Influenza Vaccine (FLU shot) (#1) 2024 07/09/2022, 08/13/2021, 07/26/2019, Additional history exists Mammogram 10/27/2024 10/27/2023, 10/03, 10/21/2022, Additional history exists Lipid Panel 12/13/2024 12/14/2019, 11/02, 09/20/2013 Adult Wellness Visit 02/01/2025 02/02/2024 Depression Screening 02/01/2025 02/02/2024 DXA Scan 05/24/2026 05/24/2024, 05/03, 02/02/2022, Additional history exists DTap/Tdap Vaccines (3 - Td or Tdap) 11/18/2026 11/18/2016, 10/07/2006 Colonoscopy 10/23/2029 10/23/2024, 12/2018, 10/05/2018 Colorectal Cancer Screening 10/23/2029 Zoster Vaccines Completed 03/13/2020, 12/06/2019 Cervical Cancer Screening Discontinued Pap Smear Discontinued 12/16/2020, 08/02, 08/08/2014, Additional history exists Pneumococcal Vaccine: 50+ Years Completed 05/01/2024 VITAMIN D LEVEL ONCE IN A LIFETIME-USE SMARTSET# 10609 Completed 10/18/2024, 04/15/2023, 08/31/2018, Additional history exists RETIRED - COLONOSCOPY-EVERY 5 YRS AGES 18-100 Discontinued 10/23/2024, 10/05/2018, 10/05/2018 HPV (Gardasil) Vaccine Aged Out No lo [...] Not on filedocumented as of this encounter Procedures Procedure Name Priority Date/Time Associated Diagnosis Comments COLONOSCOPY 10/23/2024 11:17 AM EST documented in this encounter Results * COLONOSCOPY (10/23/2024 11:17 AM EST) 10/23/2024 11:1 7 AM EST Narrative Procedure Note Karina Watson DO - 10/23/2024 11:17 AM EST [facility] Patient Name: Sarah Altman Procedure Date: 10/23/2024 11:17 AM Date of : 1960 Admit Type: Outpatient Note Status:Finalized Date of : 1960 Admit Type: Outpatient Age: 64 Room: [facility] 3 Gender: Female Note Status: Finalized Procedure: Colonoscopy Indications: High risk colon cancer surveillance: Personalhistory of non- advanced adenoma Providers: Enrike Rajput MD (Doctor) Referring MD: Karina Watson DO (Referring MD) Medicines: Propofol per Anesthesia Complications: No immediate complications. Estimated blood loss:None. Procedure: Pre-Anesthesia Assessment: - - Prior to the procedure, a History and Physicalwas performed, patient medications, allergies and sensitivities were reviewed. Thepatient's tolerance of previous anesthesia was reviewed. See [facility] for further[facility]. - The risks, benefits, and alternatives of theprocedure including the sedation options and risks were discussed with the patient.All questions were answered and informed consent was obtained. - Patient identification and proposed procedurewere verified prior to the procedure by the physician and the nurse. The procedure wasverified in the procedure room. - See [facility] for documentation of the pre-procedureassessment including ASA status. - After I obtained informed consent, the scope wascarefully and meticulously passed under direct vision only when the lumen wasdefinitively identified. CO2 insufflation was utilized throughout the entire procedureexclusively. After I obtained informed consent, the scope waspassed under direct vision. All instruments were visually inspected immediatelybefore and after removal from the patient to ensure they are fully intact. Throughout the procedure, the patient's bloodpressure, pulse, and oxygen saturations were monitored continuously. The colonoscopy wasperformed without difficulty. The patient tolerated the procedure well. The qualityof the bowel preparation was good. The Colonoscope was introduced through the anus andadvanced to the cecum, identified by appendiceal orifice and ileocecal valve. Findings & Specimens: The terminal ileum appeared normal. Multiple small-mouthed diverticula were found in the sigmoid colon. Internal hemorrhoids were found during retroflexion. A 4 mm polyp was found in the ascending colon. The polyp was sessile.The polyp was removed with a cold snare. Resection and retrieval were complete. The pathology specimenwas placed into Bottle Number 1. The exam was otherwise without abnormality on direct and retroflexionviews. Impression: - The examined portion of the ileum was normal. - Diverticulosis in the sigmoid colon. - Internal hemorrhoids. - One 4 mm polyp in the ascending colon, removedwith a cold snare. Resected and retrieved. - The examination was otherwise normal on directand retroflexion views. Recommendation: - Discharge patient to home (with escort). - Repeat colonoscopy in 5 years for surveillancebased on pathology results. - Return to referring physician as previouslyscheduled. - Patient has a contact number available foremergencies. The signs and symptoms of potential delayed complications were discussed withthe patient. Return to normal activities tomorrow. Written discharge instructionswere provided to the patient. Enrike Rajput MD 10/23/2024 11:55:45 AM This report has been signed electronically. us Karina Watson DO GASTRO LOWER Final Resul t documented in this encounter Visit Diagnoses Diagnosis History of colon polyps Personal history of colonic polyps Family history of colonic polyps Special screening for malignant neoplasms, colon documented in this encounter Administered Medications Inactive Administered Medications - up to 3 most recent administrations Medication Order MAR Action Action Date Dose Rate Site Acetaminophen (Tylenol) tab 650 mg 650 mg, Oral, PRN Pain, Mild, Starting on Mon10/23/24 at 1203, Until Mon10/23/24 at 1624, For 1 dose, Maximum of 4 grams (4000 mg) per day., Post-op Isolyte-S pH 7.4 infusion Intravenous, at 100 mL/hr, Plasma-LYTE 148, isolyte-S, and isolyte-S pH 7.4 are considered equivalent - including for MAR barcode scanning., CONTINUOUS, Starting on Mon10/23/24 at 1130, Until Mon10/23/24 at 1624, Pre-Op Restarted 10/23/2024 11:54 AM EST Continue from Pre-Op 10/23/2024 11:28 AM EST 10 0 mL/hr New Bag 10/23/2024 11:21 AM EST 100 mL/hr documented in this encounter Active and Recently Administered Medications Times are shown in EST. Continuous Medication Order 10/21/2024 10/22/2024 10/23/2024 Isolyte-S pH 7.4 infusion Intravenous, at 100 mL/hr, Plasma-LYTE 148, isolyte-S, and isolyte-S pH 7.4 are considered equivalent - including for MAR barcode scanning., CONTINUOUS, Starting on Mon10/23/24 at 1130, Until Mon10/23/24 at 1624, Pre-Op 1121 (New Bag - Prov ider: Karolina Crowley RN)1128 (Continue from Pre-Op - Provider: Joseline Foster CRNA)1153 (Paused - Provider: Joseline Foster CRNA - Comment: Switch to gravity)1154 (Restarted - Provider: Joseline Foster CRNA) PRN Medication Order 10/21/2024 10/22/2024 10/23/2024 Acetaminophen (Tylenol) tab 650 mg 650 mg, Oral, PRN Pain, Mild, Starting on Mon10/23/24 at 1203, Until 10/23/24 at 1624, For 1 dose, Maximum of 4 grams (4000 mg) per day., Post-op documented in this encounter Advance Directives Documents on File Type Date Recorded Patient Policy Manager Expl anation Advance Directives and Living Will 10/07/2016 LIVING WILL Care Teams Risk And Compliance Analytics Director Relationship Specialty Start Date End Date Karina Watson DO [address] [place] [address] PCP - General Family Medicine 08/09/14 documented as of this encounter
--- OUTSIDE RECORDS SUMMARY | 2024-11-14 01:43 | External Medical Summary | Summary of Care ---
Author Name Unknown Organization [facility] Address [address] [place] [address] Phone [phone] Care Team Providers Care Cdl Driver Name Role Phone WalterKarina Gladys VERAS Primary Care Provider Encounter Details Date Type Department Care Team (Late st Contact Info) Description 10/24/2024 Orders Only Hematology/Oncology Treatment, [place] [address] [place] [address] Zac Gonzalez, [place] [address] [place] [address] Allergies No known active allergiesdocumented as of [...] 09/10/2015 Osteoporosis 09/17/2013 Overview (12/06/2019): On fosamax [id number], Repeat dexa spring 2021 documented as of this encounter (statuses as of 10/24/2024) Immunizations Name Administration Dates Next Due COVID-19 mRNA, LNP-s, No Pre serve, 2-Dose Series (Moderna) 10/28/2020,09/30/2020 Pneumococcal Conjugate Vacci ne, 20-valent ([id number]) 05/01/2024 Seasonal Influenza Vac., MDV , IM, [...] How often do you attend chur or episcopal services? More than 4 times per year 02/02/2024 Do you belong to any clubs o r organizations such as anabaptism groups, unions, fraternal or athletic groups, or [...] Recorded PHQ Adult Total Score 0 02/02/2024 [facility] Questionnaire Answer [...] place to sleep or slept in a fpc (including now)? No 02/02/2024 Childcare Answer Date [...] PM EDT documented as of this encounter Functional Status * Does this person have serious difficulty walking or climbing stairs? Answer Date of Assessment Author Yes 02/02/2024 8:38 AM EDT documented as of this encounter Plan of Treatment Upcoming Encounters Date Type Department Care Team (Late st Contact Info) Description 10/29/2024 1:30 PM EST Hem/Onc Treatment Hematology/Oncology Treatment, [place] [address] [place] [phone] Anastasiya Chair 8 Hem Onc Scenery [address] [place] [facility] [place] [address] 02/04/2025 10:00 AM EDT Telemedicine Care at Home [address] [place] [address] Francisco Cervantes CRNP [address] [place], [place] [id number] 10/21/2025 2:30 PM EST Office Visit Rheumatology [facility] [address] [place] [phone] Zac Gonzalez CRNP [address] [place] [address] Health Maintenance Due Date Last Done Comments [...] D LEVEL ONCE IN A LIFETIME-USE SMARTSET# [id number] Completed 10/18/2024, 04/15/2023, 08/31/2018, Additional history exists [...] Not on filedocumented as of this encounter Advance Directives Documents on File Type Date Recorded Patient Tankage Grinder Expl anation Advance Directives and Living Will 10/07/2016 LIVING WILL Care Teams Cdl Driver Relationship Specialty Start Date End Date Karina Watson DO [address] [place] [address] PCP - General Family Medicine 08/09/14 documented as of this encounter
--- OUTSIDE RECORDS SUMMARY | 2024-11-14 01:43 | External Medical Summary | Summary of Care ---
Author Name Unknown Organization [facility] Address [address] [facility] [place] [address] Phone [phone] Care Team Providers Care Water Plumber Name Role Phone WalterKarina Gladys VERAS Primary Care Provider [phone] Encounter Details Date Type Department Care Team (Late st Contact Info) Description 10/23/2024 Orders Only Rheumatology [facility] [address] [place] [id number] Zac Gonzalez CRNP [address] [place] [address] Allergies No known active allergiesdocumented as of this encounter (statuses as of 10/23/2024) Medications Multiple Vitamins-Mineral s (MULTIVITAL) chewable tablet Take 1 Tablet by mouth in the morning. Active documented as of this encounter (statuses as of 10/23/2024) Active Problems Problem Noted Date Diagnosed Date Senile osteoporosis 10/21/2024 History of recurrent pneumonia 02/02/2024 Hepatic lesion 02/02/2024 Degenerative arthritis of spine 02/02/2024 Diverticulosis of sigmoid colon 02/02/2024 Seborrheic keratosis 09/10/2015 Osteoporosis 09/17/2013 Overview (12/06/2019): On fosamax , Repeat dexa spring 2021 documented as of this encounter (statuses as of 10/23/2024) Immunizations Name Administration Dates Next Due COVID-19 mRNA, LNP-s, No Pre serve, 2-Dose Series (Moderna) 10/28/2020,09/30/2020 Pneumococcal Conjugate Vacci ne, 20-valent ([id number]) 05/01/2024 Seasonal Influenza Vac., MDV , IM, [...] How often do you attend chur or oriental orthodox services? More than 4 times per year 02/02/2024 Do you belong to any clubs o r organizations such as samaritan groups, unions, fraternal or athletic groups, or [...] Recorded PHQ Adult Total Score 0 02/02/2024 [facility] - Occupational Stress Questionnaire Answer Date [...] place to sleep or slept in a group home (including now)? No 02/02/2024 Childcare Answer Date [...] 1:30 PM EST Hem/Onc Treatment Hematology/Oncology Treatment, [place] [address] [place] [phone] Anastasiya Chair [address] [place] [address] 02/04/2025 10:00 AM EDT Telemedicine Care at Home [address] [place] [address] Francisco Cervantes CRNP [address], [place] [id number] 10/21/2025 2:30 PM EST Office Visit Rheumatology [facility] [address] [place] [phone] Zac Gonzalez CRNP [address] [place] [address] [place] [address] Scheduled Procedures Name Priority Associated Diagnoses Date/Ti me COLONOSCOPY FLEXIBLE PROXIMAL DIAGNOSTIC Recall History of colon polyps Family history of colonic polyps Special screening for malignant neoplasms, colon 10/23/2024 11:31 AM EST Health Maintenance Due Date Last Done Comments [...] D LEVEL ONCE IN A LIFETIME-USE SMARTSET# [id number] Completed 10/18/2024, 04/15/2023, 08/31/2018, Additional history exists [...] Documents on File Type Date Recorded 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
--- NOTE | 2024-11-14 06:16 | History & Physical Report ---
Date of Service November 13, 2024 Assessment & Plan (1) Multifocal pneumonia: Plan: 64-year-old female with past medical history significant for osteoporosis, history of diverticulosis of sigmoid colon, Hepatic lesion, history of recurrent pneumonia ,patient says last pneumonia was about couple of years ago comes because since last 4 days having cough, fevers and shortness of breath. Patient is having bodyaches. Appetite is down. Complains of chest pain and attributes it to her coughing. Feels congested. Has some nausea. No abdominal pain. Normal bowel and bladder movements. Tachycardic in the ER. Saturating okay. Multifocal pneumonia Patient came with 4 days of cough, shortness of breath and fevers CTA chest shows multifocal pneumonia Received Rocephin and IV azithromycin in the ER We will continue with IV Zosyn and IV azithromycin Will follow MRSA screen Will follow cultures IV fluids Close monitor Tachycardia Mostly from above We will monitor DVT prophylaxis Lovenox Disposition Telemetry Full code History of Present Illness Chief Complaint: Multifocal pneumonia Primary Care Provider: Karina Watson DO 64-year-old female with past medical history significant for osteoporosis, history of diverticulosis of sigmoid colon, Hepatic lesion, history of recurrent pneumonia ,patient says last pneumonia was about couple of years ago comes because since last 4 days having cough, fevers and shortness of breath. Patient is having bodyaches. Appetite is down. Complains of chest pain and attributes it to her coughing. Feels congested. Has some nausea. No abdominal pain. Normal bowel and bladder movements. Tachycardic in the ER. Saturating okay. Past medical history. As mentioned above Past surgical history. Colonoscopy. Cystoscopy. Dental surgery. Social history. Quit smoking in 1975. Smoked 0.5 pack a day for 3 years. Alcohol 1 drink a day. No drug use. Family history. Father had asthma. Diabetes. MA status post stents. CABG. A-fib. Mother had hypertension. Thyroidectomy. Diabetes. 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 ENT- oropharynx clear Neck- supple, no JVD. Lungs- clear to auscultation mild b/l rhonchi Heart- regular rhythm; tachycardia,no murmur, no gallop. Abdomen- normal bowel sounds, soft, nontender, no distension Extremities- no pretibial edema, no erythema seen. Neuro- alert, oriented PERRL, no facial palsy; no dysarthria; moves extremities Results & Data Results & Data Vital Signs (Past 12 Hours) Vital Signs Temp Pulse Pulse Resp BP BP Pulse Ox 11/13/24 18:42 133 H 11/13/24 18:39 96 11/13/24 18:39 126 H 32 H 138/64 96 11/13/24 18:39 94 11/13/24 15:44 36.6 C 127 H 19 160/78 H 94 O2 Del Method 11/13/24 18:42 11/13/24 18:39 Room Air 11/13/24 18:39 Room Air 11/13/24 18:39 Room Air 11/13/24 15:44 Room Air Diagnostic Findings Laboratory Results WBC 12.17 K/ul (4.8-10.8) H 11/13/24 15:52 RBC 4.59 M/uL (4.20-5.40) 11/13/24 15:52 Hgb 13.7 g/dl (12.0-16.0) 11/13/24 15:52 Hct 41.1 % (37.0-47.0) 11/13/24 15:52 MCV 89.5 fL (80.0-100.0) 11/13/24 15:52 MCH 29.8 pg (25.0-34.0) 11/13/24 15:52 MCHC 33.3 g/dL (32.0-36.0) 11/13/24 15:52 RDW Std Deviation 37.4 fL (36.4-46.3) 11/13/24 15:52 RDW Coeff of Maxim 11.5 % (11.5-14.5) 11/13/24 15:52 Plt Count 236 K/uL (130-400) 11/13/24 15:52 MPV 10.2 fL (9.4-12.4) 11/13/24 15:52 Immature Gran % (Auto) 0.5 % 11/13/24 15:52 Neut % (Auto) 85.5 % 11/13/24 15:52 Lymph % (Auto) 5.4 % 11/13/24 15:52 [place] % (Auto) 8.0 % 11/13/24 15:52 Eos % (Auto) 0.1 % 11/13/24 15:52 Baso % (Auto) 0.5 % 11/13/24 15:52 Neut # (Auto) 10.41 K/uL (1.40-6.50) H 11/13/24 15:52 Lymph # (Auto) 0.66 K/uL (1.20-3.40) L 11/13/24 15:52 [place] # (Auto) 0.97 K/uL (0.11-0.59) H 11/13/24 15:52 Eos # (Auto) 0.01 K/uL (0.00-0.50) 11/13/24 15:52 Baso # (Auto) 0.06 K/uL (0.00-0.20) 11/13/24 15:52 Immature Gran # (Auto) 0.06 K/uL (0.01-0.20) 11/13/24 15:52 D-Dimer 1210 ug/L FEU (0-500) H* 11/13/24 15:52 Sodium 134 mmol/L (136-145) L 11/13/24 15:52 Potassium 3.6 mmol/L (3.5-5.1) 11/13/24 15:52 Chloride 96 mmol/L (98-107) L 11/13/24 15:52 Carbon Dioxide 27 mmol/L (21-32) 11/13/24 15:52 Anion Gap 11 (3-11) 11/13/24 15:52 BUN 10 mg/dl (6-23) 11/13/24 15:52 Creatinine 0.59 mg/dl (0.6-1.2) L 11/13/24 15:52 Est Cr Clr Drug Dosing 76.0 ml/min 11/13/24 15:52 eGFR 99.33 11/13/24 15:52 BUN/Creatinine Ratio 16.9 (10-20) 11/13/24 15:52 Glucose 120 mg/dl (70-99(Fasting)) H 11/13/24 15:52 Calcium 9.6 mg/dl (8.6-10.3) 11/13/24 15:52 Total Bilirubin 0.6 mg/dl (0.2-1.0) 11/13/24 15:52 AST 23 U/L (13-39) 11/13/24 15:52 ALT 23 U/L (7-52) 11/13/24 15:52 Alkaline Phosphatase 113 U/L (34-104) H 11/13/24 15:52 Troponin I High Sens 9.7 pg/ml (0-14) 11/13/24 15:52 Total Protein 8.9 gm/dl (6.0-8.3) H 11/13/24 15:52 Albumin 4.4 gm/dl (3.4-5.0) 11/13/24 15:52 Globulin 4.5 gm/dl (2.5-4.0) H 11/13/24 15:52 Albumin/Globulin Ratio 1.0 (0.9-2) 11/13/24 15:52 Urine Color Yellow 11/13/24 18:41 Urine Appearance Clear (Clear) 11/13/24 18:41 Urine pH 6.0 (4.5-7.5) 11/13/24 18:41 Ur Specific [place] > 1.045 (1.000-1.030) H 11/13/24 18:41 Urine Protein 2+ (Negative) H 11/13/24 18:41 Urine Glucose (UA) Negative (Negative) 11/13/24 18:41 Urine Ketones 4+ (Negative) H 11/13/24 18:41 Urine Blood Negative (Negative) 11/13/24 18:41 Urine Nitrite Negative (Negative) 11/13/24 18:41 Urine Bilirubin Negative (Negative) 11/13/24 18:41 Urine Urobilinogen Negative (Negative) 11/13/24 18:41 Ur Leukocyte Esterase Negative (Negative) 11/13/24 18:41 Urine WBC (Auto) 0-5 /hpf (0-5) 11/13/24 18:41 Urine RBC (Auto) 3-5 /hpf (0-2) H 11/13/24 18:41 U Hyaline Cast (Auto) 0-2 /lpf (0-2) 11/13/24 18:41 U Epithel Cells (Auto) 0-2 /hpf (0-2) 11/13/24 18:41 Urine Bacteria (Auto) None Seen (None Seen) 11/13/24 18:41 Adenovirus (PCR) Not Detected (NotDetected) 11/13/24 15:54 B. pertussis DNA (PCR) Not Detected (NotDetected) 11/13/24 15:54 B.parapertussis DNA PCR Not Detected (NotDetected) 11/13/24 15:54 C. pneumoniae DNA (PCR) Not Detected (NotDetected) 11/13/24 15:54 Coronavirus OC43 (PCR) Not Detected (NotDetected) 11/13/24 15:54 Coronavirus HKU1 (PCR) Not Detected (NotDetected) 11/13/24 15:54 Coronavirus 229E (PCR) Not Detected (NotDetected) 11/13/24 15:54 SARS-CoV-2 (PCR) Not Detected (NotDetected) 11/13/24 15:54 Coronavirus NL63 (PCR) Not Detected (NotDetected) 11/13/24 15:54 Human Metapneumovir PCR Not Detected (NotDetected) 11/13/24 15:54 Influenza Type A (PCR) Not Detected (NotDetected) 11/13/24 15:54 Influenza Type B (PCR) Not Detected (NotDetected) 11/13/24 15:54 M. pneumoniae (PCR) Not Detected (NotDetected) 11/13/24 15:54 Parainfluenza 1 (PCR) Not Detected (NotDetected) 11/13/24 15:54 Parainfluenza 2 (PCR) Not Detected (NotDetected) 11/13/24 15:54 Parainfluenza 3 (PCR) Not Detected (NotDetected) 11/13/24 15:54 Parainfluenza 4 (PCR) Not Detected (NotDetected) 11/13/24 15:54 RSV (PCR) Not Detected (NotDetected) 11/13/24 15:54 Entero/Rhino (PCR) Not Detected (NotDetected) 11/13/24 15:54 Impressions Chest X-Ray 11/13/24 15:48 Chest radiograph, one view History: Shortness of breath Comparison: Same-day CT Findings: Single AP view of the chest performed. Multifocal patchy opacities, most pronounced in the left lower lobe, and a few seen in the right mid lung in the periphery of the right lower lobe. No pneumothorax. The cardiomediastinal silhouette is within normal limits. Normal pulmonary vascularity. No evidence for lymphadenopathy. No visualized bony or soft tissue abnormality. Impression: Multifocal pneumonia Electronically signed by Raul Adamson 11-13-2024 6:41 PM Chest CTA 11/13/24 16:43 CT pulmonary angiogram with IV contrast History: Chest pain COMPARISON: 11/05/2023 TECHNIQUE: CT angiography of the chest was performed without IV contrast followed by IV contrast, including 3D post processing CTA image reconstruction. Dose reduction techniques were achieved by using automatic exposure control and/or adjustment of mA and/or kV according to patient size and/or use of iterative reconstruction technique. FINDINGS: Diagnostic quality: Adequate There is no evidence for pulmonary embolism. The heart is not enlarged. There is no pericardial effusion. Mildly prominent, likely reactive bilateral hilar lymph nodes. The central tracheobronchial tree is clear. Multifocal irregular nodular consolidative opacities are seen throughout the mid and lower lungs, as well as several scattered areas of tree-in-bud nodularity. There is no pleural effusion. Limited visualized upper abdomen. No destructive osseous changes are seen. IMPRESSION: No evidence for pulmonary embolism. Multifocal pneumonia. Electronically signed by Raul Adamson 11-13-2024 5:14 PM ECG Additional Comments: ECG. Sinus tachycardia rate of 119. Possible left atrial enlargement. No significant change was found. Code Status & VTE Plan VTE Prophylaxis Plan VTE Prophylaxis will be ordered: Yes
[2024-11-14 07:07] LABS: BUN Creatinine Ratio 16.7 (10-20); Calcium 7.7 mg/dl (8.6-10.3); Creatinine Clr Calc Pharmacy 107.3 ml/min; Magnesium 2.2 mg/dl (1.7-2.4); Potassium 3.4 mmol/L (3.5-5.1)
[2024-11-14 07:10] LABS: Basophils # (auto) 0.05 K/uL (0.00-0.20); Basophils % (auto) 0.5 %; Eosinophils # (auto) 0.01 K/uL (0.00-0.50); Eosinophils % (auto) 0.1 %; Hemoglobin 10.5 g/dl (12.0-16.0); Immature Granulocytes % (auto) 0.9 %; Lymphocytes # (auto) 1.11 K/uL (1.20-3.40); Lymphocytes % (auto) 10.5 %; Mean Corpuscular Hemoglobin 29.4 pg (25.0-34.0); Mean Corpuscular Hgb Conc 32.8 g/dL (32.0-36.0); Mean Corpuscular Volume 89.6 fL (80.0-100.0); Mean Platelet Volume 10.2 fL (9.4-12.4); Monocytes # (auto) 1.01 K/uL (0.11-0.59); Monocytes % (auto) 9.6 %; Neutrophils # (auto) 8.27 K/uL (1.40-6.50); Neutrophils % (auto) 78.4 %; Platelet Count 206 K/uL (130-400); RDW Coefficient of Variation 11.7 % (11.5-14.5); RDW Standard Deviation 38.5 fL (36.4-46.3); Red Blood Count 3.57 M/uL (4.20-5.40); White Blood Count 10.55 K/ul (4.8-10.8)
--- NOTE | 2024-11-14 08:40 | Hospitalist Progress Note ---
Date of Service November 14, 2024 Assessment & Plan (1) Multifocal pneumonia: Plan: 64 yo F with past medical history significant for osteoporosis, history of diverticulosis of sigmoid colon, Hepatic lesion, history of recurrent pneumonia ,patient says last pneumonia was about couple of years ago comes because since last 4 days having cough, fevers and shortness of breath. Patient is having bodyaches. Appetite is down. Complains of chest pain and attributes it to her coughing. Feels congested. Has some nausea. No abdominal pain. Normal bowel and bladder movements. Tachycardic in the ER. Saturating okay. Multifocal pneumonia Patient came with 4 days of cough, shortness of breath and fevers CTA chest shows multifocal pneumonia Received Rocephin and IV azithromycin in the ER We will continue with IV Zosyn and IV azithromycin MRSA swab negative Will follow cultures IV fluids Close monitor Ketones positive in urine, secondary to very poor oral intake She is able to have small po intake today Tachycardia Mostly from above We will monitor DVT prophylaxis - Lovenox Disposition- Telemetry Full code Admission and Anticipated Discharge Date Admission Date: November 13, 2024 Subjective Pt seen in follow up of pneumonia Sitting up in bed in NAD, overall not feeling well, does not feel much improved Denies chest pain, shortness of breath, + cough Febrile last evening Review of Systems Review of Systems: All systems reviewed & are unremarkable except as noted in Subjective Physical Exam Physical Exam: General- slim elderly F in NAD, ill appearing Head- atraumatic Eyes- PERRL. Neck- supple, no JVD. Lungs- + mild b/l rhonchi Heart- regular rhythm; tachycardia,no murmur Abdomen- normal bowel sounds, soft, nontender, no distension Extremities- no pretibial edema, no erythema seen. Moves extremities. Neuro- alert, oriented PERRL, no facial palsy; no dysarthria; moves extremities Results & Data Results & Data Vital Signs (Past 12 Hours) Vital Signs Temp Pulse Pulse Resp BP Pulse Ox O2 Del Method 11/14/24 08:19 37.7 C H 102 H 20 120/63 90 Room Air 11/14/24 03:13 36.8 C 112 H 18 120/65 93 Room Air 11/13/24 23:35 37.0 C 11/13/24 21:39 120 H 11/13/24 21:30 Room Air 11/13/24 21:30 38.4 C H 119 H 18 118/70 96 Room Air 11/13/24 21:00 113 H 29 H 124/66 92 Room Air Laboratory Results 11/14/24 11/14/24 11/13/24 Range/Units Unknown 06:12 18:41 WBC 10.55 (4.8-10.8) K/ul RBC 3.57 L (4.20-5.40) M/uL Hgb 10.5 L D (12.0-16.0) g/dl Hct 32.0 L (37.0-47.0) % MCV 89.6 (80.0-100.0) fL MCH 29.4 (25.0-34.0) pg MCHC 32.8 (32.0-36.0) g/dL RDW Std Deviation 38.5 (36.4-46.3) fL RDW Coeff of Maxim 11.7 (11.5-14.5) % Plt Count 206 (130-400) K/uL MPV 10.2 (9.4-12.4) fL Immature Gran % (Auto) 0.9 % Neut % (Auto) 78.4 % Lymph % (Auto) 10.5 % [place] % (Auto) 9.6 % Eos % (Auto) 0.1 % Baso % (Auto) 0.5 % Neut # (Auto) 8.27 H (1.40-6.50) K/uL Lymph # (Auto) 1.11 L (1.20-3.40) K/uL [place] # (Auto) 1.01 H (0.11-0.59) K/uL Eos # (Auto) 0.01 (0.00-0.50) K/uL Baso # (Auto) 0.05 (0.00-0.20) K/uL Immature Gran # (Auto) 0.10 (0.01-0.20) K/uL D-Dimer (0-500) ug/L FEU Sodium 137 (136-145) mmol/L Potassium 3.4 L (3.5-5.1) mmol/L Chloride 104 (98-107) mmol/L Carbon Dioxide 26 (21-32) mmol/L Anion Gap 7 (3-11) BUN 7 (6-23) mg/dl Creatinine 0.42 L (0.6-1.2) mg/dl Est Cr Clr Drug Dosing 107.3 ml/min eGFR 107.81 BUN/Creatinine Ratio 16.7 (10-20) Glucose 101 H (70-99(Fasting)) mg/dl Calcium 7.7 L (8.6-10.3) mg/dl Magnesium 2.2 (1.7-2.4) mg/dl Total Bilirubin (0.2-1.0) mg/dl AST (13-39) U/L ALT (7-52) U/L Alkaline Phosphatase (34-104) U/L Troponin I High Sens (0-14) pg/ml Total Protein (6.0-8.3) gm/dl Albumin (3.4-5.0) gm/dl Globulin (2.5-4.0) gm/dl Albumin/Globulin Ratio (0.9-2) Urine Color Yellow Urine Appearance Clear (Clear) Urine pH 6.0 (4.5-7.5) Ur Specific [place] > 1.045 H (1.000-1.030) Urine Protein 2+ H (Negative) Urine Glucose (UA) Negative (Negative) Urine Ketones 4+ H (Negative) Urine Blood Negative (Negative) Urine Nitrite Negative (Negative) Urine Bilirubin Negative (Negative) Urine Urobilinogen Negative (Negative) Ur Leukocyte Esterase Negative (Negative) Urine WBC (Auto) 0-5 (0-5) /hpf Urine RBC (Auto) 3-5 H (0-2) /hpf U Hyaline Cast (Auto) 0-2 (0-2) /lpf U Epithel Cells (Auto) 0-2 (0-2) /hpf Urine Bacteria (Auto) None Seen (None Seen) Nasal Screen MRSA (PCR) Negative (Negative) Adenovirus (PCR) (NotDetected) B. pertussis DNA (PCR) (NotDetected) B.parapertussis DNA PCR (NotDetected) C. pneumoniae DNA (PCR) (NotDetected) Coronavirus OC43 (PCR) (NotDetected) Coronavirus HKU1 (PCR) (NotDetected) Coronavirus 229E (PCR) (NotDetected) SARS-CoV-2 (PCR) (NotDetected) Coronavirus NL63 (PCR) (NotDetected) Human Metapneumovir PCR (NotDetected) Influenza Type A (PCR) (NotDetected) Influenza Type B (PCR) (NotDetected) L.pneumophila IgM Ab Pending Urine Legionella Ag Pending M. pneumoniae (PCR) (NotDetected) Parainfluenza 1 (PCR) (NotDetected) Parainfluenza 2 (PCR) (NotDetected) Parainfluenza 3 (PCR) (NotDetected) Parainfluenza 4 (PCR) (NotDetected) RSV (PCR) (NotDetected) Entero/Rhino (PCR) (NotDetected) 11/13/24 11/13/24 Range/Units 15:54 15:52 WBC 12.17 H (4.8-10.8) K/ul RBC 4.59 (4.20-5.40) M/uL Hgb 13.7 (12.0-16.0) g/dl Hct 41.1 (37.0-47.0) % MCV 89.5 (80.0-100.0) fL MCH 29.8 (25.0-34.0) pg MCHC 33.3 (32.0-36.0) g/dL RDW Std Deviation 37.4 (36.4-46.3) fL RDW Coeff of Maxim 11.5 (11.5-14.5) % Plt Count 236 (130-400) K/uL MPV 10.2 (9.4-12.4) fL Immature Gran % (Auto) 0.5 % Neut % (Auto) 85.5 % Lymph % (Auto) 5.4 % [place] % (Auto) 8.0 % Eos % (Auto) 0.1 % Baso % (Auto) 0.5 % Neut # (Auto) 10.41 H (1.40-6.50) K/uL Lymph # (Auto) 0.66 L (1.20-3.40) K/uL [place] # (Auto) 0.97 H (0.11-0.59) K/uL Eos # (Auto) 0.01 (0.00-0.50) K/uL Baso # (Auto) 0.06 (0.00-0.20) K/uL Immature Gran # (Auto) 0.06 (0.01-0.20) K/uL D-Dimer 1210 H* (0-500) ug/L FEU Sodium 134 L (136-145) mmol/L Potassium 3.6 (3.5-5.1) mmol/L Chloride 96 L (98-107) mmol/L Carbon Dioxide 27 (21-32) mmol/L Anion Gap 11 (3-11) BUN 10 (6-23) mg/dl Creatinine 0.59 L (0.6-1.2) mg/dl Est Cr Clr Drug Dosing 76.0 ml/min eGFR 99.33 BUN/Creatinine Ratio 16.9 (10-20) Glucose 120 H (70-99(Fasting)) mg/dl Calcium 9.6 (8.6-10.3) mg/dl Magnesium (1.7-2.4) mg/dl Total Bilirubin 0.6 (0.2-1.0) mg/dl AST 23 (13-39) U/L ALT 23 (7-52) U/L Alkaline Phosphatase 113 H (34-104) U/L Troponin I High Sens 9.7 (0-14) pg/ml Total Protein 8.9 H (6.0-8.3) gm/dl Albumin 4.4 (3.4-5.0) gm/dl Globulin 4.5 H (2.5-4.0) gm/dl Albumin/Globulin Ratio 1.0 (0.9-2) Urine Color Urine Appearance (Clear) Urine pH (4.5-7.5) Ur Specific [place] (1.000-1.030) Urine Protein (Negative) Urine Glucose (UA) (Negative) Urine Ketones (Negative) Urine Blood (Negative) Urine Nitrite (Negative) Urine Bilirubin (Negative) Urine Urobilinogen (Negative) Ur Leukocyte Esterase (Negative) Urine WBC (Auto) (0-5) /hpf Urine RBC (Auto) (0-2) /hpf U Hyaline Cast (Auto) (0-2) /lpf U Epithel Cells (Auto) (0-2) /hpf Urine Bacteria (Auto) (None Seen) Nasal Screen MRSA (PCR) (Negative) Adenovirus (PCR) Not Detected (NotDetected) B. pertussis DNA (PCR) Not Detected (NotDetected) B.parapertussis DNA PCR Not Detected (NotDetected) C. pneumoniae DNA (PCR) Not Detected (NotDetected) Coronavirus OC43 (PCR) Not Detected (NotDetected) Coronavirus HKU1 (PCR) Not Detected (NotDetected) Coronavirus 229E (PCR) Not Detected (NotDetected) SARS-CoV-2 (PCR) Not Detected (NotDetected) Coronavirus NL63 (PCR) Not Detected (NotDetected) Human Metapneumovir PCR Not Detected (NotDetected) Influenza Type A (PCR) Not Detected (NotDetected) Influenza Type B (PCR) Not Detected (NotDetected) L.pneumophila IgM Ab Urine Legionella Ag M. pneumoniae (PCR) Not Detected (NotDetected) Parainfluenza 1 (PCR) Not Detected (NotDetected) Parainfluenza 2 (PCR) Not Detected (NotDetected) Parainfluenza 3 (PCR) Not Detected (NotDetected) Parainfluenza 4 (PCR) Not Detected (NotDetected) RSV (PCR) Not Detected (NotDetected) Entero/Rhino (PCR) Not Detected (NotDetected) Medications Administered Current Inpatient Medications Acetaminophen (Acetaminophen 325 Mg Tab) 650 mg PO Q4H PRN PRN Reason: Pain or Fever Stop: 12/13/24 21:46 Enoxaparin Sodium (Enoxaparin Inj 40 Mg/0.4 Ml Syr) 40 mg SQ Q24H NICOLE Stop: 12/13/24 21:46 Last Admin: 11/13/24 22:20 Dose: 40 mg Guaifenesin (Guaifenesin 600 Mg Tabcr) 600 mg PO Q12 NICOLE Stop: 12/14/24 08:59 Guaifenesin/Dextromethorphan (Guaifenesin/Dextrom Syrup 100mg/10mg 5ml Udc) 5 ml PO Q6H PRN PRN Reason: Cough Stop: 12/13/24 21:46 Last Admin: 11/13/24 22:34 Dose: 5 ml Sodium Chloride (Nss) 1,000 mls @ 125 mls/hr IV .Q8H NICOLE Stop: 11/14/24 21:46 Last Admin: 11/14/24 06:17 Dose: 125 mls/hr Piperacillin Sod/Tazobactam Sod (Zosyn) 4.5 gm in 100 mls @ 25 mls/hr IV Q8H NICOLE; Protocol Stop: 11/18/24 22:59 Last Admin: 11/14/24 06:17 Dose: 25 mls/hr Azithromycin 500 mg/ Sodium (Chloride) 255 mls @ 127.5 mls/hr IV DAILY@1800 NICOLE Stop: 11/19/24 17:59 Levalbuterol HCl (Levalbuterol Hcl 0.63 Mg/3 Ml Neb) 0.63 mg NEB Q4H PRN; Protocol PRN Reason: Shortness Of Breath Or Wheezing Stop: 12/13/24 21:46 Multivitamins (Multivitamin Tab) 1 tab PO DAILY NICOLE Stop: 12/14/24 08:59 Nitroglycerin (Nitroglycerin Sl 0.4 Mg/Tab Tab) 0.4 mg SL Q5M PRN PRN Reason: Chest Pain Stop: 12/13/24 21:46
[2024-11-14] MEDS: POTASSIUM CHLORIDE CRTAB 20 MEQ TABCR PO STA (09:54)
[2024-11-14] MEDS: guaiFENesin 600 MG TABCR PO SCH (09:54)
[2024-11-14] MEDS: MULTIVITAMIN TAB PO SCH (10:00)
[2024-11-14 10:06] LABS: Phosphorus 1.6 mg/dl (2.5-4.9)
--- NOTE | 2024-11-14 14:49 | Electrocardiogram Report ---
Test Reason : Blood Pressure : */* mmHG Vent. Rate : 119 BPM Atrial Rate : 119 BPM P-R Int : 150 ms QRS Dur : 84 ms QT Int : 328 ms P-R-T Axes : 77 67 64 degrees QTcB Int : 461 ms Sinus tachycardia Possible Left atrial enlargement Borderline ECG When compared with ECG of 24-Jan-2024 07:31, No significant change was found Confirmed by Tae Edge ([id number]) on 11/14/2024 2:49:26 PM Referred By: REFERRED SELF Confirmed By: Tae Edge
[2024-11-14] MEDS ORDERED: AZITHROMYCIN 500 MG in SODIUM CHLORIDE 0.9% 250 ML IV SCH (18:00)
[2024-11-14] MEDS ORDERED: AZITHROMYCIN 500 MG VIAL IV SCH (19:30)
[2024-11-14] MEDS: AZITHROMYCIN 500 MG in SODIUM CHLORIDE 0.9% 250 ML IV SCH (21:40)
[2024-11-14] MEDS: PROMETHAZINE 12.5 MG/50.5 ML BAG IV STA (23:49)
[2024-11-15 10:14] LABS: BUN Creatinine Ratio 12.5 (10-20); Calcium 8.6 mg/dl (8.6-10.3); Creatinine Clr Calc Pharmacy 115.8 ml/min; Potassium 3.3 mmol/L (3.5-5.1)
[2024-11-15] MEDS: ADVANCED PROBIOTIC 625 MG CAPSULE PO SCH (10:17)
[2024-11-15 10:24] LABS: Magnesium 2.2 mg/dl (1.7-2.4); Phosphorus 1.5 mg/dl (2.5-4.9)
[2024-11-15 10:36] LABS: Hemoglobin 10.9 g/dl (12.0-16.0); Mean Corpuscular Hemoglobin 29.8 pg (25.0-34.0); Mean Corpuscular Volume 90.2 fL (80.0-100.0); Mean Platelet Volume 10.5 fL (9.4-12.4); Platelet Count 253 K/uL (130-400); RDW Coefficient of Variation 11.8 % (11.5-14.5); RDW Standard Deviation 39.4 fL (36.4-46.3); Red Blood Count 3.66 M/uL (4.20-5.40); White Blood Count 10.47 K/ul (4.8-10.8)
[2024-11-15] MEDS ORDERED: POTASSIUM PHOS 3 MMOL/1 ML INFUSION IV STA (11:11)
--- NOTE | 2024-11-15 11:13 | Hospitalist Progress Note ---
Date of Service November 15, 2024 Assessment & Plan (1) Multifocal pneumonia: Plan: 64 yo F with past medical history significant for osteoporosis, history of diverticulosis of sigmoid colon, Hepatic lesion, history of recurrent pneumonia ,patient says last pneumonia was about couple of years ago comes because since last 4 days having cough, fevers and shortness of breath. Patient is having bodyaches. Appetite is down. Complains of chest pain and attributes it to her coughing. Feels congested. Has some nausea. No abdominal pain. Normal bowel and bladder movements. Tachycardic in the ER. Saturating okay. Multifocal pneumonia Patient came with 4 days of cough, shortness of breath and fevers CTA chest shows multifocal pneumonia Received Rocephin and IV azithromycin in the ER We will continue with IV Zosyn and IV azithromycin MRSA swab negative Will follow cultures, will need to repeat sputum cultx blood cultx - negat. so far IV fluids guaifenesin, incentive spirometer, flutter valve consider hypertonic saline as well Closely monitor Ketones positive in urine, secondary to very poor oral intake She is able to have small po intake now, will advance her diet Tachycardia Mostly from above We will monitor DVT prophylaxis - Lovenox Disposition- Telemetry Full code Admission and Anticipated Discharge Date Admission Date: November 13, 2024 Subjective Pt seen in follow up of pneumonia Sitting up in bed in NAD, overall not feeling well, but feels little improved Says she was bale to eat a little Denies chest pain, shortness of breath, + cough- says she had some little sputum this AM Now afebrile, but still tachycardic Potassium, phos low and replaced Review of Systems Review of Systems: All systems reviewed & are unremarkable except as noted in Subjective Physical Exam Physical Exam: General- slim elderly F in NAD, ill appearing Head- atraumatic Eyes- PERRL. Neck- supple, no JVD. Lungs- + mild b/l rhonchi Heart- regular rhythm; tachycardia,no murmur Abdomen- normal bowel sounds, soft, nontender, no distension Extremities- no pretibial edema, no erythema seen. Moves extremities. Neuro- alert, oriented PERRL, no facial palsy; no dysarthria; moves extremities Results & Data Results & Data Vital Signs (Past 12 Hours) Vital Signs Temp Pulse Resp BP Pulse Ox O2 Del Method 11/15/24 08:00 Room Air 02/14/25 07:42 36.9 C 95 H 18 111/68 95 Room Air 11/15/24 04:17 37.1 C 109 H 16 129/67 90 Room Air 11/14/24 23:25 37.0 C 116 H 16 133/73 90 Room Air Laboratory Results 11/15/24 Range/Units 08:56 WBC 10.47 (4.8-10.8) K/ul RBC 3.66 L (4.20-5.40) M/uL Hgb 10.9 L (12.0-16.0) g/dl Hct 33.0 L (37.0-47.0) % MCV 90.2 (80.0-100.0) fL MCH 29.8 (25.0-34.0) pg MCHC 33.0 (32.0-36.0) g/dL RDW Std Deviation 39.4 (36.4-46.3) fL RDW Coeff of Maxim 11.8 (11.5-14.5) % Plt Count 253 (130-400) K/uL MPV 10.5 (9.4-12.4) fL Sodium 137 (136-145) mmol/L Potassium 3.3 L (3.5-5.1) mmol/L Chloride 100 (98-107) mmol/L Carbon Dioxide 29 (21-32) mmol/L Anion Gap 8 (3-11) BUN 5 L (6-23) mg/dl Creatinine 0.40 L (0.6-1.2) mg/dl Est Cr Clr Drug Dosing 115.8 ml/min eGFR 109.09 BUN/Creatinine Ratio 12.5 (10-20) Glucose 147 H (70-99(Fasting)) mg/dl Calcium 8.6 (8.6-10.3) mg/dl Phosphorus 1.5 L* (2.5-4.9) mg/dl Magnesium 2.2 (1.7-2.4) mg/dl Medications Administered Current Inpatient Medications Acetaminophen (Acetaminophen 325 Mg Tab) 650 mg PO Q4H PRN PRN Reason: Pain or Fever Stop: 12/13/24 21:46 Enoxaparin Sodium (Enoxaparin Inj 40 Mg/0.4 Ml Syr) 40 mg SQ Q24H [facility] Stop: 12/13/24 21:46 Last Admin: 11/14/24 20:22 Dose: 40 mg Guaifenesin (Guaifenesin 600 Mg Tabcr) 600 mg PO Q12 [facility] Stop: 12/14/24 08:59 Last Admin: 11/15/24 09:35 Dose: 600 mg Guaifenesin/Dextromethorphan (Guaifenesin/Dextrom Syrup 100mg/10mg 5ml Udc) 5 ml PO Q6H PRN PRN Reason: Cough Stop: 12/13/24 21:46 Last Admin: 11/13/24 22:34 Dose: 5 ml Piperacillin Sod/Tazobactam Sod (Zosyn) 4.5 gm in 100 mls @ 25 mls/hr IV Q8H [facility]; Protocol Stop: 11/18/24 22:59 Last Infusion: 11/15/24 10:25 Dose: Infused Azithromycin 500 mg/ Sodium (Chloride) 255 mls @ 127.5 mls/hr IV Q24H [facility] Stop: 11/19/24 18:59 Last Infusion: 11/14/24 23:49 Dose: Infused Lactobacillus Acidophilus (Advanced Probiotic 625 Mg Capsule) 1,250 mg PO DAILY [facility] Stop: 12/15/24 10:14 Last Admin: 11/15/24 10:17 Dose: 1,250 mg Levalbuterol HCl (Levalbuterol Hcl 0.63 Mg/3 Ml Neb) 0.63 mg NEB Q4H PRN; Protocol PRN Reason: Shortness Of Breath Or Wheezing Stop: 12/13/24 21:46 Multivitamins (Multivitamin Tab) 1 tab PO DAILY [facility] Stop: 12/14/24 08:59 Last Admin: 11/15/24 09:35 Dose: 1 tab Nitroglycerin (Nitroglycerin Sl 0.4 Mg/Tab Tab) 0.4 mg SL Q5M PRN PRN Reason: Chest Pain Stop: 12/13/24 21:46 Potassium Phosphate (Potassium Phos 3 Mmol/1 Ml Infusion) 9 mmol IV NOW STA Stop: 11/15/24 11:12
[2024-11-15] MEDS: POTASSIUM PHOSPHATE 9 MMOL in SODIUM CHLORIDE 0.9% 250 ML IV ONE (11:40)
[2024-11-15] MEDS: POTASSIUM CHLORIDE CRTAB 20 MEQ TABCR PO STA (11:40)
[2024-11-15] MEDS: SODIUM CHLOR 7% 4 ML NEB NEB SCH (21:03)
[2024-11-16 06:54] LABS: Hematocrit (blood only) 33.8 % (37.0-47.0); Hemoglobin 11.1 g/dl (12.0-16.0); Mean Corpuscular Hemoglobin 29.6 pg (25.0-34.0); Mean Corpuscular Hgb Conc 32.8 g/dL (32.0-36.0); Mean Corpuscular Volume 90.1 fL (80.0-100.0); Mean Platelet Volume 9.8 fL (9.4-12.4); Platelet Count 261 K/uL (130-400); RDW Coefficient of Variation 12.1 % (11.5-14.5); RDW Standard Deviation 39.5 fL (36.4-46.3); Red Blood Count 3.75 M/uL (4.20-5.40); White Blood Count 10.28 K/ul (4.8-10.8)
[2024-11-16 07:15] LABS: Calcium 8.4 mg/dl (8.6-10.3); Creatinine Clr Calc Pharmacy 116.4 ml/min; Magnesium 2.2 mg/dl (1.7-2.4); Phosphorus 2.4 mg/dl (2.5-4.9); Potassium 3.6 mmol/L (3.5-5.1)
--- NOTE | 2024-11-16 09:45 | Hospitalist Progress Note ---
Date of Service November 16, 2024 Assessment & Plan (1) Multifocal pneumonia: Plan: 64 yo F with past medical history significant for osteoporosis, history of diverticulosis of sigmoid colon, Hepatic lesion, history of recurrent pneumonia ,patient says last pneumonia was about couple of years ago comes because since last 4 days having cough, fevers and shortness of breath. Patient is having bodyaches. Appetite is down. Complains of chest pain and attributes it to her coughing. Feels congested. Has some nausea. No abdominal pain. Normal bowel and bladder movements. Tachycardic in the ER. Saturating okay. Multifocal pneumonia Patient came with 4 days of cough, shortness of breath and fevers CTA chest shows multifocal pneumonia Received Rocephin and IV azithromycin in the ER We will continue with IV Zosyn and IV azithromycin MRSA swab negative Will follow cultures, will need to repeat sputum cultx blood cultx - negat. so far IV fluids guaifenesin, incentive spirometer, flutter valve consider hypertonic saline as well Closely monitor Ketones positive in urine, secondary to very poor oral intake advanced diet, appetite improved Tachycardia Mostly from above We will monitor DVT prophylaxis - Lovenox Disposition- Telemetry Full code Admission and Anticipated Discharge Date Admission Date: November 13, 2024 Subjective Pt seen in follow up of pneumonia Sitting up in bed in NAD, overall feels improved, appetite improved Denies chest pain, shortness of breath, + cough - but difficulty to bring up sputum Now afebrile, but still tachycardic Review of Systems Review of Systems: All systems reviewed & are unremarkable except as noted in Subjective Physical Exam Physical Exam: General- slim elderly F in NAD, ill appearing Head- atraumatic Eyes- PERRL. Neck- supple, no JVD. Lungs- + mild b/l rhonchi Heart- regular rhythm; tachycardia,no murmur Abdomen- normal bowel sounds, soft, nontender, no distension Extremities- no pretibial edema, no erythema seen. Moves extremities. Neuro- alert, oriented PERRL, no facial palsy; no dysarthria; moves extremities Results & Data Results & Data Vital Signs (Past 12 Hours) Vital Signs Temp Pulse Pulse Resp BP Pulse Ox O2 Del Method 11/16/24 08:01 Room Air 11/16/24 07:56 36.5 C 109 H 20 133/73 88 L Room Air 11/16/24 07:36 110 H 22 92 Room Air 11/16/24 07:00 87 11/16/24 04:38 36.8 C 92 H 16 111/64 91 Room Air 11/16/24 00:24 37 C 100 H 14 109/67 91 Room Air 11/15/24 23:22 101 H Laboratory Results 11/16/24 11/15/24 11/14/24 Range/Units 06:12 08:56 Unknown WBC 10.28 10.47 (4.8-10.8) K/ul RBC 3.75 L 3.66 L (4.20-5.40) M/uL Hgb 11.1 L 10.9 L (12.0-16.0) g/dl Hct 33.8 L 33.0 L (37.0-47.0) % MCV 90.1 90.2 (80.0-100.0) fL MCH 29.6 29.8 (25.0-34.0) pg MCHC 32.8 33.0 (32.0-36.0) g/dL RDW Std Deviation 39.5 39.4 (36.4-46.3) fL RDW Coeff of Maxim 12.1 11.8 (11.5-14.5) % Plt Count 261 253 (130-400) K/uL MPV 9.8 10.5 (9.4-12.4) fL Sodium 138 137 (136-145) mmol/L Potassium 3.6 3.3 L (3.5-5.1) mmol/L Chloride 102 100 (98-107) mmol/L Carbon Dioxide 29 29 (21-32) mmol/L Anion Gap 7 8 (3-11) BUN 4 L 5 L (6-23) mg/dl Creatinine 0.40 L 0.40 L (0.6-1.2) mg/dl Est Cr Clr Drug Dosing 116.4 115.8 ml/min eGFR 109.09 109.09 BUN/Creatinine Ratio 10.0 12.5 (10-20) Glucose 107 H 147 H (70-99(Fasting)) mg/dl Calcium 8.4 L 8.6 (8.6-10.3) mg/dl Phosphorus 2.4 L 1.5 L* (2.5-4.9) mg/dl Magnesium 2.2 2.2 (1.7-2.4) mg/dl Urine Legionella Ag SEE NOTE Medications Administered Current Inpatient Medications Acetaminophen (Acetaminophen 325 Mg Tab) 650 mg PO Q4H PRN PRN Reason: Pain or Fever Stop: 12/13/24 21:46 Enoxaparin Sodium (Enoxaparin Inj 40 Mg/0.4 Ml Syr) 40 mg SQ Q24H [facility] Stop: 12/13/24 21:46 Last Admin: 11/15/24 21:07 Dose: 40 mg Guaifenesin (Guaifenesin 600 Mg Tabcr) 600 mg PO Q12 [facility] Stop: 12/14/24 08:59 Last Admin: 11/16/24 09:03 Dose: 600 mg Guaifenesin/Dextromethorphan (Guaifenesin/Dextrom Syrup 100mg/10mg 5ml Udc) 5 ml PO Q6H PRN PRN Reason: Cough Stop: 12/13/24 21:46 Last Admin: 11/16/24 09:03 Dose: 5 ml Piperacillin Sod/Tazobactam Sod (Zosyn) 4.5 gm in 100 mls @ 25 mls/hr IV Q8H [facility]; Protocol Stop: 11/18/24 22:59 Last Admin: 11/16/24 06:04 Dose: 25 mls/hr Azithromycin 500 mg/ Sodium (Chloride) 255 mls @ 127.5 mls/hr IV Q24H [facility] Stop: 11/19/24 18:59 Last Infusion: 11/15/24 21:49 Dose: Infused Lactobacillus Acidophilus (Advanced Probiotic 625 Mg Capsule) 1,250 mg PO DAILY [facility] Stop: 12/15/24 10:14 Last Admin: 11/16/24 09:03 Dose: 1,250 mg Levalbuterol HCl (Levalbuterol Hcl 0.63 Mg/3 Ml Neb) 0.63 mg NEB Q4H PRN; Protocol PRN Reason: Shortness Of Breath Or Wheezing Stop: 12/13/24 21:46 Multivitamins (Multivitamin Tab) 1 tab PO DAILY [facility] Stop: 12/14/24 08:59 Last Admin: 11/16/24 09:03 Dose: 1 tab Nitroglycerin (Nitroglycerin Sl 0.4 Mg/Tab Tab) 0.4 mg SL Q5M PRN PRN Reason: Chest Pain Stop: 12/13/24 21:46 Sodium Chloride (Sodium Chlor 7% 4 Ml Neb) 4 ml NEB BIDR [facility] Stop: 12/15/24 18:59 Last Admin: 11/16/24 07:36 Dose: 4 ml
[2024-11-16] MEDS: POTASSIUM CHLORIDE CRTAB 20 MEQ TABCR PO STA (10:48)
[2024-11-16] MEDS: LEVALBUTEROL HCL 0.63 MG/3 ML NEB NEB PRN (13:05)
[2024-11-17 05:21] LABS: Hematocrit (blood only) 34.5 % (37.0-47.0); Hemoglobin 11.2 g/dl (12.0-16.0); Mean Corpuscular Hemoglobin 29.7 pg (25.0-34.0); Mean Corpuscular Hgb Conc 32.5 g/dL (32.0-36.0); Mean Corpuscular Volume 91.5 fL (80.0-100.0); Mean Platelet Volume 9.4 fL (9.4-12.4); Platelet Count 286 K/uL (130-400); RDW Standard Deviation 40.4 fL (36.4-46.3); Red Blood Count 3.77 M/uL (4.20-5.40); White Blood Count 9.35 K/ul (4.8-10.8)
[2024-11-17 06:17] LABS: BUN Creatinine Ratio 9.6 (10-20); Calcium 8.7 mg/dl (8.6-10.3); Creatinine Clr Calc Pharmacy 87.9 ml/min; Magnesium 2.3 mg/dl (1.7-2.4); Phosphorus 3.1 mg/dl (2.5-4.9); Potassium 4.3 mmol/L (3.5-5.1)
--- NOTE | 2024-11-17 08:40 | Hospitalist Progress Note ---
Date of Service November 17, 2024 Assessment & Plan (1) Multifocal pneumonia: Plan: 64 yo F with past medical history significant for osteoporosis, history of diverticulosis of sigmoid colon, Hepatic lesion, history of recurrent pneumonia ,patient says last pneumonia was about couple of years ago comes because since last 4 days having cough, fevers and shortness of breath. Patient is having bodyaches. Appetite is down. Complains of chest pain and attributes it to her coughing. Feels congested. Has some nausea. No abdominal pain. Normal bowel and bladder movements. Tachycardic in the ER. Saturating okay. Multifocal pneumonia Patient came with 4 days of cough, shortness of breath and fevers CTA chest shows multifocal pneumonia Received Rocephin and IV azithromycin in the ER continued with IV Zosyn and IV azithromycin, hold azithro now MRSA swab negative Will follow cultures, will need to repeat sputum cultx blood cultx - negat. so far IV fluids guaifenesin, incentive spirometer, flutter valve hypertonic saline as well Closely monitor Ketones positive in urine, secondary to very poor oral intake advanced diet, appetite improved Tachycardia Mostly from above We will monitor obtained ecg, as per tele juct. tach., 12 lead ecg obtaned and reviewd - shows sinus rhythm DVT prophylaxis - Lovenox Disposition- Telemetry Full code Admission and Anticipated Discharge Date Admission Date: November 13, 2024 Subjective Pt seen in follow up of pneumonia Sitting up in bed in NAD, overall feels improved, appetite improved Denies chest pain, shortness of breath, + cough - but difficulty to bring up sputum Now afebrile, but still tachycardic Review of Systems Review of Systems: All systems reviewed & are unremarkable except as noted in Subjective Physical Exam Physical Exam: General- slim elderly F in NAD, ill appearing but looks improved Head- atraumatic Eyes- PERRL. Neck- supple, no JVD. Lungs- + mild b/l rhonchi, + cough Heart- regular rhythm; tachycardia,no murmur Abdomen- normal bowel sounds, soft, nontender, no distension Extremities- no pretibial edema, no erythema seen. Moves extremities. Neuro- alert, oriented PERRL, no facial palsy; no dysarthria; moves extremities Results & Data Results & Data Vital Signs (Past 12 Hours) Vital Signs Temp Pulse Pulse Resp BP Pulse Ox O2 Del Method 11/17/24 07:49 36.6 C 89 18 121/69 91 Room Air 11/17/24 07:31 85 20 91 Room Air 11/17/24 07:00 85 11/17/24 03:13 36.7 C 91 H 20 123/71 91 Room Air 11/16/24 23:38 Room Air 11/16/24 23:37 101 H 11/16/24 23:34 37.1 C 114 H 20 116/62 92 Room Air Laboratory Results 11/17/24 Range/Units 04:58 WBC 9.35 (4.8-10.8) K/ul RBC 3.77 L (4.20-5.40) M/uL Hgb 11.2 L (12.0-16.0) g/dl Hct 34.5 L (37.0-47.0) % MCV 91.5 (80.0-100.0) fL MCH 29.7 (25.0-34.0) pg MCHC 32.5 (32.0-36.0) g/dL RDW Std Deviation 40.4 (36.4-46.3) fL RDW Coeff of Maxim 12.0 (11.5-14.5) % Plt Count 286 (130-400) K/uL MPV 9.4 (9.4-12.4) fL Sodium 136 (136-145) mmol/L Potassium 4.3 (3.5-5.1) mmol/L Chloride 100 (98-107) mmol/L Carbon Dioxide 30 (21-32) mmol/L Anion Gap 6 (3-11) BUN 5 L (6-23) mg/dl Creatinine 0.52 L (0.6-1.2) mg/dl Est Cr Clr Drug Dosing 87.9 ml/min eGFR 102.40 BUN/Creatinine Ratio 9.6 L (10-20) Glucose 106 H (70-99(Fasting)) mg/dl Calcium 8.7 (8.6-10.3) mg/dl Phosphorus 3.1 (2.5-4.9) mg/dl Magnesium 2.3 (1.7-2.4) mg/dl Medications Administered Current Inpatient Medications Acetaminophen (Acetaminophen 325 Mg Tab) 650 mg PO Q4H PRN PRN Reason: Pain or Fever Stop: 12/13/24 21:46 Enoxaparin Sodium (Enoxaparin Inj 40 Mg/0.4 Ml Syr) 40 mg SQ Q24H [facility] Stop: 12/13/24 21:46 Last Admin: 11/16/24 21:59 Dose: 40 mg Guaifenesin (Guaifenesin 600 Mg Tabcr) 600 mg PO Q12 [facility] Stop: 12/14/24 08:59 Last Admin: 11/17/24 08:16 Dose: 600 mg Guaifenesin/Dextromethorphan (Guaifenesin/Dextrom Syrup 100mg/10mg 5ml Udc) 5 ml PO Q6H PRN PRN Reason: Cough Stop: 12/13/24 21:46 Last Admin: 11/16/24 09:03 Dose: 5 ml Piperacillin Sod/Tazobactam Sod (Zosyn) 4.5 gm in 100 mls @ 25 mls/hr IV Q8H [facility]; Protocol Stop: 11/18/24 22:59 Last Admin: 11/17/24 06:05 Dose: 25 mls/hr Azithromycin 500 mg/ Sodium (Chloride) 255 mls @ 127.5 mls/hr IV Q24H [facility] Stop: 11/19/24 18:59 Last Infusion: 11/16/24 21:43 Dose: Infused Lactobacillus Acidophilus (Advanced Probiotic 625 Mg Capsule) 1,250 mg PO DAILY [facility] Stop: 12/15/24 10:14 Last Admin: 11/17/24 08:16 Dose: 1,250 mg Levalbuterol HCl (Levalbuterol Hcl 0.63 Mg/3 Ml Neb) 0.63 mg NEB Q4H PRN; Protocol PRN Reason: Shortness Of Breath Or Wheezing Stop: 12/13/24 21:46 Last Admin: 11/16/24 13:05 Dose: 0.63 mg Multivitamins (Multivitamin Tab) 1 tab PO DAILY [facility] Stop: 12/14/24 08:59 Last Admin: 11/17/24 08:16 Dose: 1 tab Nitroglycerin (Nitroglycerin Sl 0.4 Mg/Tab Tab) 0.4 mg SL Q5M PRN PRN Reason: Chest Pain Stop: 12/13/24 21:46 Sodium Chloride (Sodium Chlor 7% 4 Ml Neb) 4 ml NEB BIDR [facility] Stop: 12/15/24 18:59 Last Admin: 11/17/24 07:31 Dose: 4 ml
[2024-11-17] MEDS: AZITHROMYCIN 250 MG TAB PO SCH (21:12)
[2024-11-18 08:19] LABS: Hematocrit (blood only) 33.6 % (37.0-47.0); Hemoglobin 11.1 g/dl (12.0-16.0); Mean Corpuscular Volume 90.8 fL (80.0-100.0); Mean Platelet Volume 9.5 fL (9.4-12.4); Platelet Count 348 K/uL (130-400); RDW Standard Deviation 40.1 fL (36.4-46.3); White Blood Count 8.85 K/ul (4.8-10.8)
[2024-11-18 08:25] LABS: BUN Creatinine Ratio 13.7 (10-20); Calcium 8.8 mg/dl (8.6-10.3); Creatinine Clr Calc Pharmacy 87.4 ml/min; Magnesium 2.3 mg/dl (1.7-2.4); Phosphorus 3.1 mg/dl (2.5-4.9)
[2024-11-18 12:26] VITALS: RESP 17; TEMP 98.1; O2SAT 93
--- NOTE | 2024-11-18 12:52 | Electrocardiogram Report ---
Test Reason : Blood Pressure : */* mmHG Vent. Rate : 96 BPM Atrial Rate : 96 BPM P-R Int : 150 ms QRS Dur : 86 ms QT Int : 352 ms P-R-T Axes : 67 70 71 degrees QTcB Int : 444 ms Normal sinus rhythm Possible Left atrial enlargement Borderline ECG When compared with ECG of 13-Nov-2024 15:51, No significant change was found Confirmed by Raul Vergara ([id number]) on 11/18/2024 12:52:33 PM Referred By: REFERRED SELF Confirmed By: Raul Vergara
--- NOTE | 2024-11-18 15:10 | Discharge Summary ---
Date of Service November 18, 2024 Admission HPI Per Admitting Provider 64-year-old female with past medical history significant for osteoporosis, history of diverticulosis of sigmoid colon, Hepatic lesion, history of recurrent pneumonia ,patient says last pneumonia was about couple of years ago comes because since last 4 days having cough, fevers and shortness of breath. Patient is having bodyaches. Appetite is down. Complains of chest pain and attributes it to her coughing. Feels congested. Has some nausea. No abdominal pain. Normal bowel and bladder movements. Tachycardic in the ER. Saturating okay. Past medical history. As mentioned above Past surgical history. Colonoscopy. Cystoscopy. Dental surgery. Social history. Quit smoking in 1975. Smoked 0.5 pack a day for 3 years. Alcohol 1 drink a day. No drug use. Family history. Father had asthma. Diabetes. [place] status post stents. CABG. A-fib. Mother had hypertension. Thyroidectomy. Diabetes. Admission Exam Per Admitting Provider General- Not in acute distress Head- atraumatic Eyes- PERRL. ENT- oropharynx clear Neck- supple, no JVD. Lungs- clear to auscultation mild b/l rhonchi Heart- regular rhythm; tachycardia,no murmur, no gallop. Abdomen- normal bowel sounds, soft, nontender, no distension Extremities- no pretibial edema, no erythema seen. Neuro- alert, oriented PERRL, no facial palsy; no dysarthria; moves extremities Principal Diagnosis Multifocal pneumonia Discharge Exam General- slim elderly F in NAD Head- atraumatic Eyes- PERRL. Neck- supple, no JVD. Lungs- + mild b/l rhonchi - much improved Heart- regular rhythm,no murmur Abdomen- normal bowel sounds, soft, nontender, no distension Extremities- no pretibial edema, no erythema seen. Moves extremities. Neuro- alert, oriented PERRL, no facial palsy; no dysarthria; moves extremities Discharge Data Allergies Allergy/AdvReac Type Severity Reaction Status Date / Time No Known Allergies Allergy Verified 11/05/23 23:[address] chest FINDINGS: Diagnostic quality: Adequate There is no evidence for pulmonary embolism. The heart is not enlarged. There is no pericardial effusion. Mildly prominent, likely reactive bilateral hilar lymph nodes. The central tracheobronchial tree is clear. Multifocal irregular nodular consolidative opacities are seen throughout the mid and lower lungs, as well as several scattered areas of tree-in-bud nodularity. There is no pleural effusion. Limited visualized upper abdomen. No destructive osseous changes are seen. IMPRESSION: No evidence for pulmonary embolism. Multifocal pneumonia. Hospital Course (1) Multifocal pneumonia: 64 yo F with past medical history significant for osteoporosis, history of diverticulosis of sigmoid colon, Hepatic lesion, history of recurrent pneumonia ,patient says last pneumonia was about couple of years ago comes because since last 4 days having cough, fevers and shortness of breath. Patient is having bodyaches. Appetite is down. Complains of chest pain and attributes it to her coughing. Feels congested. Has some nausea. No abdominal pain. Normal bowel and bladder movements. Tachycardic in the ER. Saturating okay. Multifocal pneumonia Patient came with 4 days of cough, shortness of breath and fevers CTA chest shows multifocal pneumonia Received Rocephin and IV azithromycin in the ER continued with IV Zosyn and IV azithromycin MRSA swab negative Will follow cultures, will need to repeat sputum cultx (not able to obtain) blood cultx - negat. so far IV fluids guaifenesin, incentive spirometer, flutter valve hypertonic saline as well Closely monitor Pt feels much improved - plan to DC on PO abx and close follow up w/ PCP. Ketones positive in urine, secondary to very poor oral intake advanced diet, appetite much improved Tachycardia Mostly from above We will monitor obtained ecg, as per tele juct. tach., 12 lead ecg obtained and reviewed - shows sinus rhythm Total Time Total Time Spent Total Time Spent (In Minutes): 40 Discharge Plan Discharge Items Patient Disposition: Home - Self-Care Reason For Visit: MULTIFOCAL PNEUMONIA Discharge Diagnosis: Multifocal pneumonia Activity: Per Instructions section Non-emergency contact: Primary Care Provider Call non-emergency contact if: you have any medication questions and your symptoms worsen Follow-up/Referrals: Karina Watson DO [Primary Care Provider] - (Date & Time 11/22/2024 10:00 AM Provider: Janna Park CRNP [facility] ) Diet: Regular Addtl Attending Provider Instructions: Follow up with your primary care physician, the appointment was scheduled for you for 11/22/2024. Finish antibiotic treatment as prescribed. Continue using guaifenesin, flutter valve, incentive spirometry. Pending Studies at Discharge: Yes Studies:: final results of blood cultures Stand-Alone Forms: My [facility], Smoking Cessation Medications and DC Order Prescriptions: New guaifenesin [Mucinex] 600 mg Tablet Extended Release 12hr 600 mg PO Q12 Qty: 14 0RF Advanced Probiotic 625 mg (10 billion cell) Capsule 1 cap PO DAILY Qty: 7 0RF amoxicillin-pot clavulanate 875-125 mg tablet 1 tab PO BID 2 Days Qty: 4 0RF Continued multivitamin Tablet 1 tab PO DAILY Discharge Orders: Discharge Order (Routine); Ordered 11/18/24 Ordered By: Segundo Stevens Admission Data Admit Date/Time: 11/13/24 20:34 Attending Provider: Segundo Stevens Admit Provider: Vivek Nolasco Primary Care Provider: Karina Watson
[2024-11-18 15:28] VITALS: BP 129/69; PULSE 104
[2024-11-19 17:52] LABS: Legionella pneumoph IgM, IFA <1:256 TITER
== END 2024-11-18 16:15 | disposition home or self-care (01) | DRG 195 ==
LOC: ED 15:43 → 4W 20:34